=== PATIENT | male | born 1955 | race Caucasian/White ===

== ENCOUNTER 2016-09-26 12:04 | Emergency (ER) | payer MEDICARE ==
[~2016-09-26] VITALS: Ht 195.6 cm; Wt 78.0 kg
[~2016-09-26 12:04] MED LIST: HYDR-3533 PO
[2016-09-26 12:06] VITALS: BP 158/101; PULSE 107; RESP 16; TEMP 98.2; O2SAT 95
--- NOTE | 2016-09-26 13:59 | PD ---
HPI Chief Complaint: Fall Time Seen by Provider: 13:57 Travel History International Travel<30 days: No Contact w/Intl Traveler<30days: No Traveled to known affect area: No History of Present Illness HPI 60-year-old male presents to the emergency department status post falling in his shower this morning. Patient has history of chronic pain and EtOH abuse. Currently the patient does not appear intoxicated. He states he fell and hit his rib cage on the faucet on the left lower rib cage. He denies loss of consciousness, syncope, or hitting his head. He denies any other acute worsening pain. He is allergic to Phenergan, sulfa, and Ultram. PFSH Past Medical History Depression: Yes Heart Rhythm Problems: Yes (FAST HT BEAT ) Cardiovascular Problems: Yes Diminished Hearing: Yes Hypertension: Yes Musculoskeletal: Yes Neurologic: Yes (CEREBRAL PALSY) Past Surgical History Cardiac Surgery: Yes () Eye Surgery: Yes Social History Alcohol Use: Yes Tobacco Use: Yes Substance Use: No Allergies-Medications (Allergen,Severity, Reaction): Coded Allergies: Sulfa (Verified Allergy, Intermediate, HIVES, 09/26/16) Ultram (Verified Allergy, Mild, ITCH, 09/26/16) Phenergan (Verified Adverse Reaction, Severe, SEIZURES, 09/26/16) Reported Meds & Prescriptions Reported Meds & Active Scripts Active Lortab 5 mg/325 mg (Hydrocodone/Acetaminophen 5 mg/325 mg) 1 Tab 1 Tab PO Q6H PRN Review of Systems Except as stated in HPI: all other systems reviewed are Neg General / Constitutional: No: Fever Eyes: No: Visual changes HENT: No: Headaches Cardiovascular: No: Chest Pain or Discomfort Respiratory: No: Shortness of Breath Gastrointestinal: No: Abdominal Pain Genitourinary: No: Dysuria Musculoskeletal: Positive: Arthralgias (left lower anterior lateral rib cage), No: Pain Skin: No Rash Neurologic: No: Weakness Psychiatric: No: Depression Endocrine: No: Polydipsia Hematologic/Lymphatic: No: Easy Bruising Physical Exam Narrative GENERAL: Patient appears in no acute distress. He is talkative and animated, and moving all extremities normally. SKIN: Warm and dry. Normal color. Normal turgor. No open wounds, abrasions, or obvious ecchymosis noted on the thoracic wall. HEAD: Atraumatic. Normocephalic. Nontender. EYES: Pupils equal and round. No scleral icterus. No injection or drainage. ENT: No nasal bleeding or discharge. Mucous membranes pink and moist. Pharynx is clear. Airway patent. NECK: Trachea midline. No bony tenderness or step-off. Range of motion is full and supple. CARDIOVASCULAR: Regular rate and rhythm. No murmurs gallops or rubs appreciated. RESPIRATORY: No accessory muscle use. Clear to auscultation. Breath sounds equal bilaterally. Patient has generalized tenderness along the left anterior lateral lower thorax without obvious deformity, crepitus, or signs of trauma. MUSCULOSKELETAL: Extremities without clubbing, cyanosis, or edema. No obvious deformities. NEUROLOGICAL: Awake and alert. No obvious cranial nerve deficits. Motor grossly within normal limits. Five out of 5 muscle strength in the arms and legs. Normal speech. PSYCHIATRIC: Appropriate mood and affect; insight and judgment normal. Data Data Last Documented VS Vital Signs Date Time Temp Pulse Resp B/P Pulse Ox O2 Delivery O2 Flow Rate FiO2 09/26/16 12:06 98.2 107 16 158/101 95 Orders Ribs, Uni (W/Exp Cxr-Min 3vw) (09/26/16 13:59) [facility] Medical Decision Making Medical Screen Exam Complete: Yes Emergency Medical Condition: Yes Differential Diagnosis Fall in bathtub. Thoracic contusion. Rib pain. Rib fracture. Narrative Course Patient appears medically stable at time of exam. Left Rib x-rays and chest x-ray ordered. Chest x-ray and left rib films are negative for acute process. Patient is felt stable for discharge. Patient is given a prescription for ibuprofen 600 mg 4 times a day #40. Patient is given a prescription for extra strength Tylenol 2 tabs every 6 hours when necessary pain #60. Patient should use heat or ice to this area as needed. Patient follow with his primary care physician or return to emergency Department with worsening symptoms as needed. Diagnosis Primary Impression: Contusion of left front wall of thorax Qualified Code: S20.212A - Contusion of left front wall of thorax, initial encounter Referrals: [facility] as needed Patient Instructions: Contusion in Adults (ED), General Instructions Additional Instructions: Chest x-ray and left rib films are negative for acute process. Patient is felt stable for discharge. Patient is given a prescription for ibuprofen 600 mg 4 times a day #40. Patient is given a prescription for extra strength Tylenol 2 tabs every 6 hours when necessary pain #60. Patient should use heat or ice to this area as needed. Patient follow with his primary care physician or return to emergency Department with worsening symptoms as needed. Med/Other Pt SpecificInfo: Prescription(s) given Scripts Ibuprofen 600 Mg [id number] Mg PO Q6H PRN (Pain/Inflammation) #40 TAB Prov:Meagan Ortiz MD 09/26/16 Acetaminophen (Acetaminophen Extra Strength)500 Mg Cap1,000 Mg PO Q6H PRN (PAIN SCALE 4 TO 10) #60 CAP Ref 1 Prov:Meagan Ortiz MD 09/26/16 Disposition: 01 DISCHARGE HOME Condition: Stable Av Plascencia Sep 26, 2016 13:59
[2016-09-26] MEDS ORDERED: EXTR500C PO (15:22)
[2016-09-26] MEDS ORDERED: IBUP-232 PO (15:22)
--- NOTE | 2016-09-26 15:30 | RADRPT ---
EXAM DATE/TIME: 09/26/2016 14:27 [facility] COMPARISON: RIBS LEFT(W PA CXR MIN 3VWS), January 12, 2012, 16:12. INDICATIONS : Left middle and lower rib pain. Fall. MEDICAL HISTORY : Cardiovascular disease. Hypertension Cerebral palsy. Scoliosis. SURGICAL HISTORY : None. ENCOUNTER: Initial ACUITY: 1 day PAIN SCORE: 7/10 LOCATION: Left middle ribs FINDINGS: Multiple views of the left ribs were performed. There is no evidence of displaced fracture. No dest ructive lesions or areas of periosteal thickening are seen. Expiratory view of the chest is negative for pneumothorax. The mediastinal structures are midline. CONCLUSION: No evidence of displaced rib fracture or acute cardiopulmonary process. Musa Fulton MD on September 26, 2016 at 15:27 Board Certified Radiologist. This report was verified electronically.
== END 2016-09-26 15:43 | disposition home or self-care (01) ==
LOC: NETRI 12:04
DX: S20.212A Contusion of left front wall of thorax, initial encounter (principal); F32.9 Major depressive disorder, single episode, unspecified; I10 Essential (primary) hypertension; G80.9 Cerebral palsy, unspecified; Z72.0 Tobacco use; W18.2XXA Fall in (into) shower or empty bathtub, initial encounter; Y93.9 Activity, unspecified; Y92.9 Unspecified place or not applicable; Y99.9 Unspecified external cause status
CPT/HCPCS: 71101; 99284

== ENCOUNTER 2016-10-08 16:14 | Emergency (ER) | payer MEDICARE ==
[~2016-10-08] VITALS: Ht 195.6 cm; Wt 76.0 kg
[~2016-10-08 16:14] MED LIST changes: +EXTR500C PO; +IBUP-232 PO
[2016-10-08 17:29] VITALS: BP 176/89; PULSE 94; RESP 16; TEMP 97.9; O2SAT 97
[2016-10-08] MEDS ORDERED: HYDR-3535 PO (17:29)
[2016-10-08] MEDS ORDERED: SODIUM CHLORIDE 0.9% FLUSH 10 ML FLUSH IV FLUSH PRN (17:45)
--- NOTE | 2016-10-08 18:14 | PD ---
HPI Chief Complaint: Back/ Neck Pain or Injury Time Seen by Provider: 17:33 Travel History International Travel<30 days: No Contact w/Intl Traveler<30days: No Traveled to known affect area: No History of Present Illness HPI 60yo M with PMH of cerebral palsy who is homeless presents to the ED with mid back pain s/p trip and fall today. Pt states he was in a parking lot and tripped on something and fell backwards hitting his back. Denies any head trauma or LOC, chest pain, sob, n/v, dizziness, focal weakness or numbness or urinary complaints. Pt is very tender on abdominal exam and states he has been having diarrhea. PFSH Past Medical History Depression: Yes Heart Rhythm Problems: Yes (FAST HT BEAT ) Cardiovascular Problems: Yes Diminished Hearing: Yes (speaks garbled) Hypertension: Yes Musculoskeletal: Yes Neurologic: Yes (CEREBRAL PALSY) Influenza Vaccination: No Past Surgical History Cardiac Surgery: Yes () Eye Surgery: Yes Social History Alcohol Use: No Tobacco Use: Yes Substance Use: No Allergies-Medications (Allergen,Severity, Reaction): Coded Allergies: Sulfa (Verified Allergy, Intermediate, HIVES, 10/08/16) Ultram (Verified Allergy, Mild, ITCH, 10/08/16) Phenergan (Verified Adverse Reaction, Severe, SEIZURES, 10/08/16) Reported Meds & Prescriptions Reported Meds & Active Scripts Active Ibuprofen 400 Mg Tab 400 Mg PO Q8H PRN Reported Lortab (Hydrocodone-Acetaminophen) 10-325 Mg Tab 1 Tab PO Q6H PRN Review of Systems Except as stated in HPI: all other systems reviewed are Neg Physical Exam Narrative GENERAL: 60yo M not in distress. SKIN: Warm and dry. HEAD: Atraumatic. Normocephalic. EYES: Pupils equal and round. EOMI. No scleral icterus. No injection or drainage. ENT: No nasal bleeding or discharge. Mucous membranes pink and moist. NECK: No midline ttp cervical spine. CARDIOVASCULAR: Regular rate and rhythm. No murmur appreciated. RESPIRATORY: No accessory muscle use. Clear to auscultation. Breath sounds equal bilaterally. GASTROINTESTINAL: Abdomen soft, diffusely tender on palpation. BACK: +Mid thoracic to upper lumbar ttp. T4- L1. No erythema or ecchymoses. MUSCULOSKELETAL: Left knee: Distal pulse intact. Good range of motion. + Effusion in left knee joint. Sensation intact. No erythema. NEUROLOGICAL: Awake and alert. Muscle strength equal bilaterally in all extremities. Sensation equal in all extremities. PSYCHIATRIC: Appropriate mood and affect; insight and judgment normal. Data Data Last Documented VS Vital Signs Date Time Temp Pulse Resp B/P Pulse Ox O2 Delivery O2 Flow Rate FiO2 10/08/16 19:44 16 10/08/16 19:39 88 168/70 99 Room Air 10/08/16 17:29 97.9 Orders Complete Blood Count With Diff (10/08/16 17:43) Comprehensive Metabolic Panel (10/08/16 17:43) Lipase (10/08/16 17:43) Prothrombin Time / Inr (Pt) (10/08/16 17:43) Act Partial Throm Time (Ptt) (10/08/16 17:43) Ct Abd/Pel W Iv Contrast(Rout) (10/08/16 17:43) Iv Access Insert/Monitor (10/08/16 17:43) Ecg Monitoring (10/08/16 17:43) Oximetry (10/08/16 17:43) Sodium Chloride 0.9% Flush (Ns Flush) (10/08/16 17:45) Electrocardiogram (10/08/16 17:43) Chest, Single Ap (10/08/16 ) Urinalysis - C+S If Indicated (10/08/16 17:43) Alcohol (Ethanol) (10/08/16 18:10) Morphine Inj (Morphine Inj) (10/08/16 18:15) Iohexol 350 Inj (Omnipaque 350 Inj) (10/08/16 19:21) Knee, Ltd (1 Or 2vws) (10/08/16 ) Labs Laboratory Tests Test 10/08/16 10/08/16 18:07 18:10 White Blood Count 5.0 TH/MM3 Red Blood Count 4.05 MIL/MM3 Hemoglobin 12.8 GM/DL Hematocrit 38.3 % Mean Corpuscular Volume 94.5 FL Mean Corpuscular Hemoglobin 31.5 PG Mean Corpuscular Hemoglobin 33.3 % Concent Red Cell Distribution Width 14.4 % Platelet Count 175 TH/MM3 Mean Platelet Volume 7.7 FL Neutrophils (%) (Auto) 61.7 % Lymphocytes (%) (Auto) 17.3 % Monocytes (%) (Auto) 14.2 % Eosinophils (%) (Auto) 5.4 % Basophils (%) (Auto) 1.4 % Neutrophils # (Auto) 3.1 TH/MM3 Lymphocytes # (Auto) 0.9 TH/MM3 Monocytes # (Auto) 0.7 TH/MM3 Eosinophils # (Auto) 0.3 TH/MM3 Basophils # (Auto) 0.1 TH/MM3 CBC Comment DIFF FINAL Differential Comment Prothrombin Time 11.3 SEC Prothromb Time International 1.0 RATIO Ratio Activated Partial 32.6 SEC Thromboplast Time Sodium Level 140 MEQ/L Potassium Level 3.8 MEQ/L Chloride Level 107 MEQ/L Carbon Dioxide Level 25.7 MEQ/L Anion Gap 7 MEQ/L Blood Urea Nitrogen 14 MG/DL Creatinine 0.62 MG/DL Estimat Glomerular Filtration 132 ML/MIN Rate Random Glucose 96 MG/DL Calcium Level 8.5 MG/DL Total Bilirubin 0.7 MG/DL Aspartate Amino Transf 62 U/L (AST/SGOT) Alanine Aminotransferase 36 U/L (ALT/SGPT) Alkaline Phosphatase 65 U/L Total Protein 6.6 GM/DL Albumin 3.3 GM/DL Lipase 104 U/L Urine Color YELLOW Urine Turbidity CLEAR Urine pH 6.0 Urine Specific [place] 1.028 Urine Protein TRACE mg/dL Urine Glucose (UA) NEG mg/dL Urine Ketones NEG mg/dL Urine Occult Blood SMALL Urine Nitrite NEG Urine Bilirubin NEG Urine Urobilinogen 2.0 MG/DL Urine Leukocyte Esterase NEG Urine RBC 20 /hpf Urine WBC LESS THAN 1 /hpf Urine Mucus FEW /lpf Microscopic Urinalysis Comment CULT NOT INDICATED MDM Medical Decision Making Medical Screen Exam Complete: Yes Emergency Medical Condition: Yes Interpretation(s) EKG: NSR 89bpm. LAD. LVH. Incomplete RBBB. TWI V2, V6. Laboratory Tests Test 10/08/16 10/08/16 18:07 18:10 White Blood Count 5.0 TH/MM3 (4.0-11.0) Red Blood Count 4.05 MIL/MM3 (4.50-5.90) Hemoglobin 12.8 GM/DL (13.0-17.0) Hematocrit 38.3 % (39.0-51.0) Mean Corpuscular Volume 94.5 FL (80.0-100.0) Mean Corpuscular Hemoglobin 31.5 PG (27.0-34.0) Mean Corpuscular Hemoglobin 33.3 % Concent (32.0-36.0) Red Cell Distribution Width 14.4 % (11.6-17.2) Platelet Count 175 TH/MM3 (150-450) Mean Platelet Volume 7.7 FL (7.0-11.0) Neutrophils (%) (Auto) 61.7 % (16.0-70.0) Lymphocytes (%) (Auto) 17.3 % (9.0-44.0) Monocytes (%) (Auto) 14.2 % (0.0-8.0) Eosinophils (%) (Auto) 5.4 % (0.0-4.0) Basophils (%) (Auto) 1.4 % (0.0-2.0) Neutrophils # (Auto) 3.1 TH/MM3 (1.8-7.7) Lymphocytes # (Auto) 0.9 TH/MM3 (1.0-4.8) Monocytes # (Auto) 0.7 TH/MM3 (0-0.9) Eosinophils # (Auto) 0.3 TH/MM3 (0-0.4) Basophils # (Auto) 0.1 TH/MM3 (0-0.2) CBC Comment DIFF FINAL Differential Comment Prothrombin Time 11.3 SEC (9.8-11.6) Prothromb Time International 1.0 RATIO Ratio Activated Partial 32.6 SEC Thromboplast Time (24.3-30.1) Sodium Level 140 MEQ/L (136-145) Potassium Level 3.8 MEQ/L (3.5-5.1) Chloride Level 107 MEQ/L (98-107) Carbon Dioxide Level 25.7 MEQ/L (21.0-32.0) Anion Gap 7 MEQ/L (5-15) Blood Urea Nitrogen 14 MG/DL (7-18) Creatinine 0.62 MG/DL (0.60-1.30) Estimat Glomerular Filtration 132 ML/MIN Rate (>89) Random Glucose 96 MG/DL (74-106) Calcium Level 8.5 MG/DL (8.5-10.1) Total Bilirubin 0.7 MG/DL (0.2-1.0) Aspartate Amino Transf 62 U/L (15-37) (AST/SGOT) Alanine Aminotransferase 36 U/L (12-78) (ALT/SGPT) Alkaline Phosphatase 65 U/L (45-117) Total Protein 6.6 GM/DL (6.4-8.2) Albumin 3.3 GM/DL (3.4-5.0) Lipase 104 U/L (73-393) Urine Color YELLOW (YELLW/STRAW) Urine Turbidity CLEAR (CLEAR) Urine pH 6.0 (5.0-8.5) Urine Specific [place] 1.028 (1.002-1.035) Urine Protein TRACE mg/dL (NEG-TRACE) Urine Glucose (UA) NEG mg/dL (NEG) Urine Ketones NEG mg/dL (NEG) Urine Occult Blood SMALL (NEG) Urine Nitrite NEG (NEG) Urine Bilirubin NEG (NEG) Urine Urobilinogen 2.0 MG/DL (LESS THAN 2.0) Urine Leukocyte Esterase NEG (NEG) Urine RBC 20 /hpf (0-3) Urine WBC LESS THAN 1 /hpf (0-5) Urine Mucus FEW /lpf (OCC) Microscopic Urinalysis Comment CULT NOT INDICATED Last Impressions Chest X-Ray 10/08/16 0000 Signed Impressions: Service Date/Time: Saturday, October 08, 2016 18:12 - CONCLUSION: No acute cardiopulmonary disease. Laura Mayen MD Differential Diagnosis Mechanical fall vs. dehydration vs. infectious colitis Narrative Course 60yo M with back pain s/p trip and fall today. Pt has difficulty hearing but is AAOx3. Pt denies any head trauma or LOC. Pt is moving all extremities with full muscle strength. Although pt did not complain about abdominal pain, he was tender to palpation on exam. Labs reviewed, no leukocytosis. H/H at baseline. AST elevated at 62. Lipase normal. UA showed small blood. No leukocyte. Culture not indicated. CXR negative. CT abd/pelvis showed small pericardial effusion, simple cysts in kidneys and chronic changes of the lumbar spine. Pt was given morphine 4mg IV for pain. Abdominal pain improved after medication. Pt has full range of motion in left knee but does have swelling on exam. No erythema. Pt is refusing xray left knee so will sign out against medical advice. AMA: The risks of leaving against medical advice without further evaluation treatment were discussed with the patient. These risks include cardiac dysfunction, cardiac dysrhythmia, possible heart attack, possible stroke or . The patient indicated understanding of these risks and appeared to have the capacity to make this decision. Diagnosis Primary Impression: Fall Qualified Code: W19.XXXA - Fall, initial encounter Patient Instructions: General Instructions Departure Forms: Tests/Procedures Additional Instructions: Please follow up with your PMD in 1-2 days. Return to the ED if symptoms worsen. Med/Other Pt SpecificInfo: Prescription(s) given Scripts Ibuprofen 400 Mg [id number] Mg PO Q8H PRN (PAIN SCALE 1 TO 4) #20 TAB Ref 0 Prov:Ivonne Casanova DO 10/08/16 Disposition: 07 AGAINST MEDICAL ADVICE Condition: Stable Ivonne Casanova DO Oct 08, 2016 18:13
[2016-10-08] MEDS ORDERED: MORPHINE SULFATE 4 MG/ML INJ IV PUSH ONE (18:15)
[2016-10-08 18:37] LABS: AUTOMATED NEUTROPHIL # 3.1 TH/MM3 (1.8-7.7); BASOPHIL # 0.1 TH/MM3 (0-0.2); BASOPHIL % 1.4 % (0.0-2.0); EOSINOPHIL # 0.3 TH/MM3 (0-0.4); EOSINOPHIL % 5.4 % (0.0-4.0); HEMATOCRIT 38.3 % (39.0-51.0); HEMO FLAGS DIFF FINAL; LYMPH % 17.3 % (9.0-44.0); LYMPHOCYTE # 0.9 TH/MM3 (1.0-4.8); MEAN CELL VOLUME 94.5 FL (80.0-100.0); MEAN CORPUSCULAR HEMOGLOBIN 31.5 PG (27.0-34.0); MEAN CORPUSCULAR HGB CONC 33.3 % (32.0-36.0); MONO % 14.2 % (0.0-8.0); NEUT % 61.7 % (16.0-70.0); PLATELET COUNT 175 TH/MM3 (150-450); RED BLOOD COUNT 4.05 MIL/MM3 (4.50-5.90); RED CELL DISTRIBUTION WIDTH 14.4 % (11.6-17.2)
[2016-10-08 18:44] LABS: BLOOD, URINE SMALL (NEG); COMMENT (UR) CULT NOT INDICATED; CULTURE IF INDICATED CULT NOT INDICATED; GLUCOSE,URINE NEG (NEG); KETONE, URINE NEG (NEG); MUCUS URINE FEW /lpf (OCC); NITRITE,URINE NEG (NEG); URINE COLOR YELLOW (YELLW/STRAW)
--- NOTE | 2016-10-08 18:45 | RADRPT ---
EXAM DATE/TIME: 10/08/2016 18:12 [facility] COMPARISON: CHEST SINGLE AP, October 27, 2015, 21:14. INDICATIONS : Chest pain after fall. MEDICAL HISTORY : None. SURGICAL HISTORY : None. ENCOUNTER: Initial ACUITY: 1 day PAIN SCORE: 5/10 LOCATION: Bilateral chest FINDINGS: The lungs are clear without infiltrate, nodule, or mass. There is no appreciable pleural effusion fo r technique. Heart and mediastinum are unremarkable. CONCLUSION: No acute cardiopulmonary disease. Laura Mayen MD on October 08, 2016 at 18:43 Board Certified Radiologist. This report was verified electronically.
[2016-10-08 18:55] LABS: APTT (PATIENT) 32.6 SEC (24.3-30.1); PROTHROMBIN TIME - PATIENT 11.3 SEC (9.8-11.6)
[2016-10-08 18:59] LABS: ANION GAP 7 MEQ/L (5-15); AST (GOT) 62 U/L (15-37); BICARBONATE 25.7 MEQ/L (21.0-32.0); BLOOD UREA NITROGEN 14 MG/DL (7-18); CHLORIDE 107 MEQ/L (98-107); GLOMERULAR FILTRATION RATE 132 ML/MIN (>89); POTASSIUM 3.8 MEQ/L (3.5-5.1); SODIUM (NA) 140 MEQ/L (136-145)
[2016-10-08 19:02] LABS: ALKALINE PHOSPHATASE 65 U/L (45-117); ALT (GPT) 36 U/L (12-78); TOTAL BILIRUBIN ADULT 0.7 MG/DL (0.2-1.0)
[2016-10-08] MEDS ORDERED: IOHEXOL 350 MG/ML 10 ML VIAL (for RAD DIAG) IV ONE (19:21)
[2016-10-08 19:39] VITALS: BP 168/70; PULSE 88; RESP 18; O2SAT 99
[2016-10-08 19:44] VITALS: RESP 16
--- NOTE | 2016-10-08 19:47 | RADRPT ---
EXAM DATE/TIME: 10/08/2016 19:20 [facility] COMPARISON: CT LUMBAR SPINE W/O CONTRAST, December 08, 2015, 12:09. INDICATIONS : Fall with lower back and flank pain. IV CONTRAST: 100 cc Omnipaque 350 (iohexol) IV ORAL CONTRAST: No oral contrast ingested. RADIATION DOSE: 6.37 CTDIvol (mGy) MEDICAL HISTORY : Hypertension. SURGICAL HISTORY : None. ENCOUNTER: Initial ACUITY: 1 day PAIN SCALE: 6/10 LOCATION: Bilateral flank TECHNIQUE: Volumetric scanning of the abdomen and pelvis was performed. Using automated exposure control and adjustment of the mA and/or kV according to patient size, radiation dose was kept as low as reasonably achievable to obtain optimal diagnostic quality images. FINDINGS: CT Abdomen: The liver, spleen, pancreas, adrenals are unremarkable. There is no evidence for any appr eciable pathological adenopathy, free fluid, or bowel obstruction. There are simple cysts in both ki dneys the largest on the left measures 6.6 cm in size. Small pericardial effusion is seen. CT pelvis: There is no evidence for mass, abscess formation, or any significant adenopathy within the pelvis. There is lumbar scoliosis convexity towards the left with old bilateral L5 spondylolysis not changed since 2016 CT lumbar spine in addition to multilevel spinal stenosis and degenerative change s. CONCLUSION: Small pericardial effusion, simple cysts in the kidneys and chronic changes of the gordo mbar spine. Laura Mayen MD on October 08, 2016 at 19:40 Board Certified Radiologist. This report was verified electronically.
[2016-10-08] MEDS ORDERED: IBUP400T20 PO (20:21)
--- NOTE | 2016-10-08 21:49 | RADRPT ---
EXAM DATE/TIME: 10/08/2016 20:28 [facility] COMPARISON: No previous studies available for comparison. INDICATIONS : Left knee pain after fall. MEDICAL HISTORY : None. SURGICAL HISTORY : None. ENCOUNTER: Initial ACUITY: 1 day PAIN SCORE: 10/10 LOCATION: Left Knee. FINDINGS: No definite fractures, dislocations, lytic, or sclerotic lesions are seen. Extensive and far advanced osteoarthritis is seen in tricompartment. CONCLUSION: Osteoarthritis. K. Robbie Mayen MD on October 08, 2016 at 21:48 Board Certified Radiologist. This report was verified electronically.
--- NOTE | 2016-10-09 10:15 | EKG ---
Date Performed: 10/08/2016 Time Performed: 18:22:24 PTAGE: 60 years EKG: Sinus rhythm LEFT ATRIAL ENLARGEMENT INCOMPLETE RIGHT BUNDLE BRANCH BLOCK LEFT VENTRICULAR HYPERTROPHY AND ST-T C HANGE LATERAL MYOCARDIAL INFARCTION NONSPECIFIC ST-T WAVE ABNORMALITY PREVIOUS TRACING : 10/08/2016 18.21 DOCTOR: Jose Menendez Interpretating Date/Time 10/09/2016 10:13:58
== END 2016-10-08 21:36 | disposition home or self-care (01) ==
LOC: NEPA 16:14
DX: M54.9 Dorsalgia, unspecified (principal); I45.10 Unspecified right bundle-branch block; I51.7 Cardiomegaly; I10 Essential (primary) hypertension; G80.9 Cerebral palsy, unspecified; Z72.0 Tobacco use; I31.3 Pericardial effusion (noninflammatory); W18.09XA Striking against other object with subsequent fall, initial encounter; Y93.01 Activity, walking, marching and hiking; Y92.481 Parking lot as the place of occurrence of the external cause; Y99.8 Other external cause status
CPT/HCPCS: 71010; 73560; 74177; 80053; 80307; 81001; 83690; 85025; 85610; 85730; 93005; 96374; 99285; J2270; Q9967

== ENCOUNTER 2016-11-07 09:17 | Emergency (ER) | payer MEDICARE, OTHER ==
[~2016-11-07] VITALS: Ht 177.8 cm; Wt 68.0 kg
[~2016-11-07 09:17] MED LIST changes: -EXTR500C PO; -HYDR-3533 PO; +HYDR-3535 PO; -IBUP-232 PO; +IBUP400T20 PO
[2016-11-07 09:20] VITALS: BP 139/70; PULSE 98; RESP 15; TEMP 97.9; O2SAT 98
[2016-11-07 09:33] VITALS: BP 148/87; PULSE 98; RESP 18; O2SAT 97
[2016-11-07] MEDS ORDERED: ACETAMINOPHEN/HYDROcodone 325 MG/5 MG TAB PO ONE (10:30)
--- NOTE | 2016-11-07 10:31 | RADRPT ---
EXAM DATE/TIME: 11/07/2016 09:57 [facility] COMPARISON: No previous studies available for comparison. INDICATIONS : Posterior left rib pain. MEDICAL HISTORY : Hypertension. Smoker. SURGICAL HISTORY : None. ENCOUNTER: Initial ACUITY: 2 days PAIN SCORE: 10/10 LOCATION: Left posterior ribs. FINDINGS: There are displaced fractures of the right ninth rib and left 11th ribs. No definite pneumothorax is seen for technique. CONCLUSION: Bilateral rib fractures and no definite pneumothorax. Laura Mayen MD on November 07, 2016 at 10:27 Board Certified Radiologist. This report was verified electronically.
--- NOTE | 2016-11-07 10:32 | RADRPT ---
EXAM DATE/TIME: 11/07/2016 09:57 [facility] COMPARISON: No previous studies available for comparison. INDICATIONS : Left hip pain after fall. MEDICAL HISTORY : Hypertension. Smoker. SURGICAL HISTORY : None. ENCOUNTER: Initial ACUITY: 2 days PAIN SCORE: 10/10 LOCATION: Left hip joint. FINDINGS: No definite fractures, or dislocations are identified. No definite lytic or sclerotic lesion is seen . The joint space is well maintained. CONCLUSION: Unremarkable study. Laura Mayen MD on November 07, 2016 at 10:30 Board Certified Radiologist. This report was verified electronically.
--- NOTE | 2016-11-07 11:14 | RADRPT ---
EXAM DATE/TIME: 11/07/2016 10:15 [facility] COMPARISON: CT BRAIN W/O CONTRAST, October 27, 2015, 21:05. INDICATIONS : Fell and hit head. RADIATION DOSE: 56.37 CTDIvol (mGy) MEDICAL HISTORY : Hypertension. Cardiovascular disease SURGICAL HISTORY : None. ENCOUNTER: Initial ACUITY: 1 day PAIN SCALE: 3/10 LOCATION: cranial TECHNIQUE: Multiple contiguous axial images were obtained of the head. Using automated exposure control and adj ustment of the mA and/or kV according to patient size, radiation dose was kept as low as reasonably a chievable to obtain optimal diagnostic quality images. FINDINGS: CEREBRUM: The ventricles are normal for age. No evidence of midline shift, mass lesion, hemorrhage or acute in farction. No extra-axial fluid collections are seen. POSTERIOR FOSSA: The cerebellum and brainstem are intact. The 4th ventricle is midline. The cerebellopontine angle i s unremarkable. EXTRACRANIAL: The visualized portion of the orbits is intact. SKULL: The calvaria is intact. No evidence of skull fracture. CONCLUSION: No acute disease. No significant change has occurred. Musa Fulton MD on November 07, 2016 at 11:12 Board Certified Radiologist. This report was verified electronically.
[2016-11-07 11:17] VITALS: BP 114/59; PULSE 93; RESP 18; O2SAT 97
--- NOTE | 2016-11-07 11:19 | PD ---
HPI . Fall Chief Complaint: Fall Time Seen by Provider: 09:41 Travel History International Travel<30 days: No Contact w/Intl Traveler<30days: No Traveled to known affect area: No History of Present Illness HPI Patient presents complaining with a fall this morning. It was a mechanical fall. He states that he fell and struck the back of his head. Reports a positive loss of consciousness. He comes in complaining with posterior head pain, left rib pain and left hip pain. Pain is described as sharp and constant and 7/10. PFSH Past Medical History Depression: Yes Heart Rhythm Problems: Yes (FAST HT BEAT ) Cardiovascular Problems: Yes Diminished Hearing: Yes (speaks garbled) Hypertension: Yes Musculoskeletal: Yes Neurologic: Yes (CEREBRAL PALSY) Past Surgical History Cardiac Surgery: Yes () Eye Surgery: Yes Social History Alcohol Use: No Tobacco Use: Yes Substance Use: No Allergies-Medications (Allergen,Severity, Reaction): Coded Allergies: Sulfa (Verified Allergy, Intermediate, HIVES, 11/07/16) Ultram (Verified Allergy, Mild, ITCH, 11/07/16) Phenergan (Verified Adverse Reaction, Severe, SEIZURES, 11/07/16) Reported Meds & Prescriptions Reported Meds & Active Scripts Active Ibuprofen 400 Mg Tab 400 Mg PO Q8H PRN Reported Lortab (Hydrocodone-Acetaminophen) 10-325 Mg Tab 1 Tab PO Q6H PRN Review of Systems Except as stated in HPI: all other systems reviewed are Neg General / Constitutional: No: Fever, Chills HENT: Positive: Other (posterior head pain) Cardiovascular: Positive: Chest Pain or Discomfort Respiratory: No: Shortness of Breath Musculoskeletal: Positive: Arthralgias Neurologic: Positive: Slurred Speech, Other (positive LOC) Physical Exam Narrative GENERAL: Awake and alert and in no acute distress. SKIN: Warm and dry. HEAD: Normocephalic. He has a contusion to the occiput of the scalp. EYES: Pupils equal and round. Extraocular movements are intact. NECK: Trachea midline. Neck is nontender and he has full range of motion of the neck without pain. CARDIOVASCULAR: Regular rate and rhythm. Heart sounds are normal. RESPIRATORY: No accessory muscle use. Lungs are clear with full air movement throughout. He does have some left lateral chest wall tenderness with no crepitus or deformity. No bruises or abrasions noted. MUSCULOSKELETAL: No obvious deformities. No edema. Tender in the left hip. No shortening or malrotation. NEUROLOGICAL: Awake and alert. No obvious cranial nerve deficits. Motor grossly within normal limits. Slurred speech. PSYCHIATRIC: Appropriate mood and affect; insight and judgment normal. Data Data Last Documented VS Vital Signs Date Time Temp Pulse Resp B/P Pulse Ox O2 Delivery O2 Flow Rate FiO2 11/07/16 11:17 93 18 114/59 97 Room Air 11/07/16 09:[address] Brain W/O Iv Contrast(Rout) (11/07/16 09:41) Hip, Uni(Ap&Lat) W Ap Pelvis (11/07/16 09:41) Ribs, Uni (W/Exp Cxr-Min 3vw) (11/07/16 09:41) Acetamin-Hydrocod 325-5 Mg ([place] 5-325 (11/07/16 10:30) MDM Medical Decision Making Medical Screen Exam Complete: Yes Emergency Medical Condition: Yes Medical Record Reviewed: Yes (this patient has a history of cerebral palsy. He has associated dysarthria. Other medical problems include COPD, hypertension and BPH. He uses both tobacco and cocaine.) Differential Diagnosis My differential diagnosis of head trauma includes but is not limited to scalp contusion, concussion, intracerebral hemorrhage. Differential diagnosis of chest trauma includes but is not limited to superficial abrasions/contusions, rib fracture, pneumothorax, hemothorax, pulmonary contusion, cardiac contusion, ruptured thoracic aorta Differential diagnosis of extremity trauma includes but is not limited to fracture, sprain or strain, dislocation, contusion Narrative Course Patient presents for evaluation of injury sustained a mechanical fall this morning. CT CONCLUSION: No acute disease. No significant change has occurred. Last Impressions Ribs X-Ray 11/07/16940 Signed Impressions: Service Date/Time: October 09:57 - CONCLUSION: Bilateral rib fractures and no definite pneumothorax. Laura Mayen MD Hip and Pelvis X-Ray 11/07/16940 Signed Impressions: Service Date/Time: October 09:57 - CONCLUSION: Unremarkable study. Laura Mayen MD Diagnosis Primary Impression: Head injury due to trauma Qualified Code: S09.90XA - Head injury due to trauma, initial encounter Additional Impression: Rib fractures Qualified Code: S22.43XA - Closed fracture of multiple ribs of both sides, initial encounter Patient Instructions: General Instructions, Head Injury (DC), Rib Fracture (DC) Med/Other Pt SpecificInfo: Prescription(s) given Scripts Hydrocodone-Acetaminophen ([place])5-325 mg Tab1 Tab PO Q4H PRN (PAIN) #12 TAB Ref 0 Prov:Meagan Ortiz MD 11/07/16 Disposition: 01 DISCHARGE HOME Condition: Stable Meagan Ortiz MD Nov 07, 2016 11:19
[2016-11-07] MEDS ORDERED: NORC5TAB PO (11:23)
== END 2016-11-07 11:47 | disposition home or self-care (01) ==
LOC: NEPD 09:17
DX: S09.90XA Unspecified injury of head, initial encounter (principal); S22.43XA Multiple fractures of ribs, bilateral, initial encounter for closed fracture; I10 Essential (primary) hypertension; M25.552 Pain in left hip; G80.9 Cerebral palsy, unspecified; H91.90 Unspecified hearing loss, unspecified ear; Z72.0 Tobacco use; W19.XXXA Unspecified fall, initial encounter; Y93.9 Activity, unspecified; Y92.9 Unspecified place or not applicable
CPT/HCPCS: 70450; 71101; 73502

== ENCOUNTER 2016-11-09 20:09 | Emergency (ER) | payer MEDICARE ==
[~2016-11-09] VITALS: Ht 172.7 cm; Wt 77.0 kg
[~2016-11-09 20:09] MED LIST changes: +NORC5TAB PO
[2016-11-09 20:12] VITALS: BP 136/86; PULSE 109; RESP 20; TEMP 98.4; O2SAT 96
--- NOTE | 2016-11-09 20:37 | PD ---
HPI Chief Complaint: Respiratory Symptoms Time Seen by Provider: 20:31 Travel History International Travel<30 days: No Contact w/Intl Traveler<30days: No Traveled to known affect area: No History of Present Illness HPI 60-year-old male with history of a history of cerebral palsy. He has associated dysarthria. Other medical problems include COPD, hypertension and BPH. He uses both tobacco and cocaine.. Patient comes in complaining of ongoing left hip and buttock pain, and chest pain/shortness of breath since falling 3 days ago. Patient was seen here by Dr. Ortiz, and evaluated with CT Scan, and X-rays showing bilateral rib fractures and no acute hip or pelvic fracture at that time. Patient denies fever, but feels his pain in the left hip is worse as he fell again since that one visit. He is also complaining of shortness of breath, and states he is out of his Ventolin inhaler which she usually has. He denies fever, chills. He has no headache or abdominal pain. He does state a productive cough today, without specific discoloration of the sputum. He is allergic to Phenergan, sulfa, and Ultram. PFSH Past Medical History Depression: Yes Heart Rhythm Problems: Yes (FAST HT BEAT ) Cardiovascular Problems: Yes Diminished Hearing: Yes (speaks garbled) Hypertension: Yes Musculoskeletal: Yes Neurologic: Yes (CEREBRAL PALSY) Past Surgical History Cardiac Surgery: Yes () Eye Surgery: Yes Social History Alcohol Use: No Tobacco Use: Yes Substance Use: No Allergies-Medications (Allergen,Severity, Reaction): Coded Allergies: Sulfa (Verified Allergy, Intermediate, HIVES, 11/09/16) Ultram (Verified Allergy, Mild, ITCH, 11/09/16) Phenergan (Verified Adverse Reaction, Severe, SEIZURES, 11/09/16) Reported Meds & Prescriptions Reported Meds & Active Scripts Active Acetaminophen Extra Strength (Acetaminophen) 500 Mg Cap 1,000 Mg PO Q6H PRN Ventolin Hfa 18 GM Inh (Albuterol Sulfate) 90 Mcg/Act Aer 2 Puff INH Q4-6H PRN Ibuprofen 600 Mg Tab 600 Mg PO Q6H PRN [place] (Hydrocodone-Acetaminophen) 5-325 mg Tab 1 Tab PO Q4H PRN Ibuprofen 400 Mg Tab 400 Mg PO Q8H PRN Reported Lortab (Hydrocodone-Acetaminophen) 10-325 Mg Tab 1 Tab PO Q6H PRN Review of Systems ROS Limitations: Speech Impaired Except as stated in HPI: all other systems reviewed are Neg General / Constitutional: No: Fever HENT: No: Headaches Respiratory: Positive: Cough, Pleuritic Pain Musculoskeletal: Positive: Limited ROM (in the left hip.), Pain, No: Myalgias , Arthralgias Physical Exam Narrative GENERAL: Patient is noted to be in no acute distress. He is lying comfortably on the exam table. He does use a walker normally for ambulation. SKIN: Warm and dry. Normal color. Normal turgor. Without signs of acute trauma. HEAD: Atraumatic. Normocephalic. Nontender. EYES: Pupils equal and round. No scleral icterus. No injection or drainage. ENT: No nasal bleeding or discharge. Mucous membranes pink and moist. Pharynx is clear. Airway is patent. Patient is edentulous. NECK: Trachea midline. No JVD. No bony tenderness or step-off. Range of motion is full. CARDIOVASCULAR: Regular rate and rhythm. No murmurs gallops or rubs. RESPIRATORY: No accessory muscle use. Possible rhonchi in the left lower lung field to auscultation. No wheezes or crackles appreciated. Breath sounds equal bilaterally. GASTROINTESTINAL: Abdomen soft, non-tender, nondistended. Hepatic and splenic margins not palpable. MUSCULOSKELETAL: Extremities without clubbing, cyanosis, or edema. No obvious deformities. Patient has pain along the left posterior buttock and hip with decreased range of motion in the left hip with manipulation. No obvious deformity or shortening of the left lower extremity is noted. NEUROLOGICAL: Awake and alert. No obvious cranial nerve deficits. Motor grossly within normal limits. Five out of 5 muscle strength in the arms and legs. Normal speech. PSYCHIATRIC: Appropriate mood and affect; insight and judgment normal. Data Data Last Documented VS Vital Signs Date Time Temp Pulse Resp B/P Pulse Ox O2 Delivery O2 Flow Rate FiO2 11/09/16 20:12 98.4 109 20 136/86 96 Room Air Orders Hip, Uni(Ap&Lat) W Ap Pelvis (11/09/16 20:28) Chest, Single Ap (11/09/16 20:28) Chest, Expiration Only (11/09/16 ) MDM Medical Decision Making Medical Screen Exam Complete: Yes Emergency Medical Condition: Yes Medical Record Reviewed: Yes Differential Diagnosis Recurrent falls. History of rib fractures. Possible hip contusion/sprain. Possible hip fracture. Pneumonia. Pneumothorax. Pleural effusion. Narrative Course Patient is medically stable at time of exam. Vital signs are stable. X-rays of the left hip and pelvis are ordered. Chest x-ray is ordered. X-rays showed no acute process in the hip, or pelvis. Chest x-ray shows Last 24 hours Impressions Hip and Pelvis X-Ray 11/09/162027 Signed Impressions: Service Date/Time: Wednesday, November 09, 2016 20:46 - CONCLUSION: No evidence of recent bone injury. Zhang Kapoor MD Chest X-Ray 11/09/162027 Signed Impressions: Service Date/Time: Wednesday, November 09, 2016 20:45 - CONCLUSION: A focal opacity with vertical linear interface margin in the lateral left midlung is of uncertain significance. This could represent an early infiltrate. Recommend performing an expiratory erect view of the chest to exclude a pneumothorax. Zhang Kapoor MD Expiratory directly over the chest is ordered to rule out pneumothorax per radiologist request. Repeat chest x-ray shows no pneumothorax. Patient was discharged home with a prescription for Ventolin inhaler 2 puffs every 4-6 hours when necessary wheeze or shortness of breath. This has 1 refill. Patient is to take ibuprofen 600 mg, 1 tab 4 times a day when necessary #40. Patient is to take acetaminophen 500 mg 2 tabs every 6 hours when necessary #60. Patient is to follow with his primary care physician as needed. Diagnosis Primary Impression: Recurrent falls while walking Additional Impressions: Hip pain, left COPD (chronic obstructive pulmonary disease) Qualified Code: J41.0 - Simple chronic bronchitis Referrals: Primary Care Physician Patient Instructions: COPD (Chronic Obstructive Pulmonary Disease) (ED), General Instructions, Hip Pain (ED), Wheezing (ED) Scripts Acetaminophen (Acetaminophen Extra Strength)500 Mg Cap1,000 Mg PO Q6H PRN (PAIN SCALE 4 TO 10) #60 CAP Ref 1 Prov:Alfredo Barnard MD 11/09/16 Albuterol 18 GM Inh (Ventolin Hfa 18 GM Inh)90 Mcg/Act Aer2 Puff INH Q4-6H PRN ( SHORTNESS OF BREATH) #1 INHALER Ref 1 Prov:Alfredo Barnard MD 11/09/16 Ibuprofen 600 Mg [id number] Mg PO Q6H PRN (Pain/Inflammation) #40 TAB Prov:Alfredo Barnard MD 11/09/16 Disposition: 01 DISCHARGE HOME Condition: Stable Av Plascencia Nov 09, 2016 20:37
[2016-11-09] MEDS ORDERED: VENTAER INH (21:01)
[2016-11-09] MEDS ORDERED: IBUP-232 PO (21:01)
[2016-11-09] MEDS ORDERED: EXTR500C PO (21:01)
--- NOTE | 2016-11-09 21:04 | RADRPT ---
EXAM DATE/TIME: 11/09/2016 20:45 [facility] COMPARISON: CHEST SINGLE AP, October 08, 2016, 18:12. INDICATIONS : Cough and shortness of breath. MEDICAL HISTORY : None. SURGICAL HISTORY : None. ENCOUNTER: Initial ACUITY: 3 days PAIN SCORE: 0/10 LOCATION: chest FINDINGS: 2 frontal images are obtained in the supine position. On both views, there is an ill-defined opacity with a vertical interface located in the lateral left midlung. This could represent an infiltrate, however, a pleural reflection could conceivably have the same appearance. Right lung is clear. The heart is upper limits normal size for supine frontal view. Both hemidiaphragms well delineated. Hea led fracture of the anterior left 4th rib. CONCLUSION: A focal opacity with vertical linear interface margin in the lateral left midlung is of uncertain sig nificance. This could represent an early infiltrate. Recommend performing an expiratory erect view of the chest to exclude a pneumothorax. Zhang Kapoor MD on November 09, 2016 at 21:00 Board Certified Radiologist. This report was verified electronically.
--- NOTE | 2016-11-09 21:05 | RADRPT ---
EXAM DATE/TIME: 11/09/2016 20:46 [facility] COMPARISON: HIP LEFT (AP&LAT 2/3VWS) W AP PELVIS, November 07, 2016, 9:57. INDICATIONS : Patient had several falls and complains of left hip pain. MEDICAL HISTORY : None. SURGICAL HISTORY : None. ENCOUNTER: Initial ACUITY: 4 - 6 days PAIN SCORE: 10/10 LOCATION: Left Hip FINDINGS: Examination of the left hip was performed with AP Pelvis. The primary and secondary trabecular patte rn of the femoral neck is intact. The hip joint is of normal width without significant sclerosis or bony hypertrophy. The acetabulum is grossly intact. There is advanced degenerative changes in the l ower lumbar spine, similar to prior. CONCLUSION: No evidence of recent bone injury. Zhang Kapoor MD on November 09, 2016 at 21:02 Board Certified Radiologist. This report was verified electronically.
--- NOTE | 2016-11-09 22:22 | RADRPT ---
EXAM DATE/TIME: 11/09/2016 21:48 [facility] COMPARISON: RIBS LEFT(W PA CXR MIN 3VWS), November 07, 2016, 9:57. RIBS LEFT(W PA CXR MIN 3VWS), September 26, 2016, 14 :27. CHEST SINGLE AP, November 09, 2016, 20:45. INDICATIONS : Cough, chest pain, and shortness of breath. Rule out pneumo. MEDICAL HISTORY : Hypertension. Cardiovascular disease SURGICAL HISTORY : None. ENCOUNTER: Subsequent ACUITY: 1 day PAIN SCORE: 0/10 LOCATION: Bilateral chest FINDINGS: An erect portable AP view of the chest was performed to further evaluate a finding of left midlung. The vertical interface seen on the prior chest x-ray is not reproduced on this study and there is no evidence of pneumothorax. The lungs are symmetrically aerated and clear. There is asymmetric densit y in the right apex and asymmetric density in the right supraclavicular tissues. Prior rib series an d demonstrated an acute fracture lower right chest and the opacity at the right apex could represent either pleural thickening or fluid. The heart is normal size. CONCLUSION: 1. No evidence of pneumothorax on either side. 2. Asymmetric apical pleural thickening or fluid at the right apex. Known acute right 9th rib fractu re. Zhang Kapoor MD on November 09, 2016 at 22:16 Board Certified Radiologist. This report was verified electronically.
== END 2016-11-09 23:01 | disposition home or self-care (01) ==
LOC: NEPK 20:09
DX: M25.552 Pain in left hip (principal); J41.0 Simple chronic bronchitis; M79.1 Myalgia; R07.9 Chest pain, unspecified; I10 Essential (primary) hypertension; G80.9 Cerebral palsy, unspecified; H91.90 Unspecified hearing loss, unspecified ear; W19.XXXA Unspecified fall, initial encounter; Y93.01 Activity, walking, marching and hiking; Z91.81 History of falling; Z72.0 Tobacco use; Z87.09 Personal history of other diseases of the respiratory system; Z86.59 Personal history of other mental and behavioral disorders; Z86.79 Personal history of other diseases of the circulatory system; Z87.39 Personal history of other diseases of the musculoskeletal system and connective tissue
CPT/HCPCS: 71010; 73502; 99284

== ENCOUNTER 2016-11-12 15:46 | Inpatient (IN) | payer MEDICARE ==
[~2016-11-12] VITALS: Ht 193 cm; Wt 75.0 kg
[~2016-11-12 15:46] MED LIST changes: +EXTR500C PO; +IBUP-232 PO; +VENTAER INH
[2016-11-12 16:03] VITALS: BP 121/73; PULSE 100; RESP 20; TEMP 97.4; O2SAT 95
--- NOTE | 2016-11-12 16:10 | PD ---
HPI Chief Complaint: Chest Pain Time Seen by Provider: 16:10 Travel History International Travel<30 days: No Contact w/Intl Traveler<30days: No Traveled to known affect area: No History of Present Illness HPI 60-year-old male with history of cerebral palsy, hypertension, depression, tobacco and cocaine use, presents to the emergency department for evaluation of chest pain that started this morning. Patient was recently seen for multiple falls. He does have diagnosis of rib pain however the patient states he was sitting there this morning when he began to get this left-sided chest pain. It radiated to both arms. He thought at first it may be related to his fractures. He ate breakfast and rested but the pain persisted and only worsened. He states he felt mildly nauseous with it and became diaphoretic. That has subsided. [facility] was contacted and the patient was given sublingual nitroglycerin and this mildly relieved his symptoms. His pain is currently a 6 out of 10, constant, sharp. Denies any shortness of breath. No recent illnesses, fever, or chills. Patient has no other symptoms to report at this time. PFSH Past Medical History Depression: Yes Heart Rhythm Problems: Yes (FAST HT BEAT ) Cardiovascular Problems: Yes Diminished Hearing: Yes (speaks garbled) Hypertension: Yes Musculoskeletal: Yes Neurologic: Yes (CEREBRAL PALSY) Past Surgical History Cardiac Surgery: Yes () Eye Surgery: Yes Social History Alcohol Use: No Tobacco Use: Yes Substance Use: No Allergies-Medications (Allergen,Severity, Reaction): Coded Allergies: Sulfa (Verified Allergy, Intermediate, HIVES, 11/09/16) Ultram (Verified Allergy, Mild, ITCH, 11/09/16) Phenergan (Verified Adverse Reaction, Severe, SEIZURES, 11/09/16) Reported Meds & Prescriptions Reported Meds & Active Scripts Active Ventolin Hfa 18 GM Inh (Albuterol Sulfate) 90 Mcg/Act Aer 2 Puff INH Q4-6H PRN Ibuprofen 600 Mg Tab 600 Mg PO Q6H PRN Reported Lortab (Hydrocodone-Acetaminophen) 10-325 Mg Tab 1 Tab PO Q6H PRN Review of Systems Except as stated in HPI: all other systems reviewed are Neg Physical Exam Narrative GENERAL: Thin male patient, lying in bed, in no acute distress. Patient is deaf but reads lips very well and is able to communicate completely this way and chooses to. SKIN: Focused skin assessment warm/dry. Scarring and for many of the anterior chest. HEAD: Atraumatic. Normocephalic. EYES: Pupils equal and round. No scleral icterus. No injection or drainage. ENT: No nasal bleeding or discharge. Mucous membranes pink and moist. NECK: Trachea midline. No JVD. CARDIOVASCULAR: Tachycardic rate and rhythm. No murmur appreciated. RESPIRATORY: No accessory muscle use. Diminished to auscultation. Breath sounds equal bilaterally. There is tenderness to palpation of the anterior lateral rib cage bilaterally. GASTROINTESTINAL: Abdomen soft, nondistended. Epigastric and left upper quadrant tenderness to palpation, mild guarding. No rebound tenderness.. Hepatic and splenic margins not palpable. MUSCULOSKELETAL: No obvious deformities. No clubbing. No cyanosis. No edema. NEUROLOGICAL: Awake and alert. No obvious cranial nerve deficits. Motor grossly within normal limits. Patient does not have his teeth in and sometimes speech is difficult to understand. Data Data Last Documented VS Vital Signs Date Time Temp Pulse Resp B/P Pulse Ox O2 Delivery O2 Flow Rate FiO2 11/12/16 20:35 89 20 113/86 98 11/12/16 17:00 Room Air 11/12/16 16:03 97.4 Orders Electrocardiogram (11/12/16 16:10) Ckmb (Isoenzyme) Profile (11/12/16 16:10) Complete Blood Count With Diff (11/12/16 16:10) Magnesium (Mg) (11/12/16 16:10) Prothrombin Time / Inr (Pt) (11/12/16 16:10) Act Partial Throm Time (Ptt) (11/12/16 16:10) Troponin I (11/12/16 16:10) Ecg Monitoring (11/12/16 16:10) Bilateral Bp Monitoring (11/12/16 16:10) Iv Access Insert/Monitor (11/12/16 16:10) Oximetry (11/12/16 16:10) Oxygen Administration (11/12/16 16:10) Sodium Chloride 0.9% Flush (Ns Flush) (11/12/16 16:15) Sodium Chlorid 0.9% 500 Ml Inj (Ns 500 M (11/12/16 16:15) Chest, Pa & Lat (11/12/16 16:10) Ketorolac Inj (Toradol Inj) (11/12/16 16:15) Spine, Thoracic-Ap/Lat/Sw(3vw) (11/12/16 ) Comprehensive Metabolic Panel (11/12/16 16:48) Ct Abd/Pel W Iv Contrast(Rout) (11/12/16 ) Ct Thorax/ Chest W Iv Contrast (11/12/16 ) Lactic Acid Sepsis Protocol (11/12/16 17:19) Blood Culture (11/12/16 17:19) Vancomycin Inj (Vancomycin Inj) (11/12/16 17:45) Cefepime Inj (Maxipime Inj) (11/12/16 17:42) Iohexol 350 Inj (Omnipaque 350 Inj) (11/12/16 19:41) Morphine Inj (Morphine Inj) (11/12/16 19:45) Lipase (11/12/16 18:15) Troponin I (11/12/16 20:10) Electrocardiogram (11/12/16 ) CKMB (11/12/16 18:15) CKMB% (11/12/16 18:15) Admit Order (Ed Use Only) (11/12/16 21:03) Labs Laboratory Tests Test 11/12/16 11/12/16 11/12/16 11/12/16 16:15 18:10 18:15 20:30 White Blood Count 24.2 TH/MM3 Red Blood Count 3.58 MIL/MM3 Hemoglobin 11.4 GM/DL Hematocrit 34.7 % Mean Corpuscular Volume 96.9 FL Mean Corpuscular Hemoglobin 31.8 PG Mean Corpuscular Hemoglobin 32.8 % Concent Red Cell Distribution Width 14.1 % Platelet Count 432 TH/MM3 Mean Platelet Volume 7.6 FL Neutrophils (%) (Auto) 81.6 % Lymphocytes (%) (Auto) 3.9 % Monocytes (%) (Auto) 13.3 % Eosinophils (%) (Auto) 0.5 % Basophils (%) (Auto) 0.7 % Neutrophils # (Auto) 19.7 TH/MM3 Lymphocytes # (Auto) 0.9 TH/MM3 Monocytes # (Auto) 3.2 TH/MM3 Eosinophils # (Auto) 0.1 TH/MM3 Basophils # (Auto) 0.2 TH/MM3 CBC Comment AUTO DIFF Differential Total Cells 100 Counted Neutrophils % (Manual) 77 % Band Neutrophils % 4 % Lymphocytes % 6 % Monocytes % 13 % Neutrophils # (Manual) 19.6 TH/MM3 Differential Comment FINAL DIFF MANUAL Platelet Estimate NORMAL Platelet Morphology Comment NORMAL Red Cell Morphology Comment NORMAL Prothrombin Time 13.1 SEC Prothromb Time International 1.2 RATIO Ratio Activated Partial 31.0 SEC Thromboplast Time Lactic Acid Level 1.8 mmol/L Sodium Level 140 MEQ/L Potassium Level 4.0 MEQ/L Chloride Level 106 MEQ/L Carbon Dioxide Level 24.3 MEQ/L Anion Gap 10 MEQ/L Blood Urea Nitrogen 21 MG/DL Creatinine 0.77 MG/DL Estimat Glomerular Filtration 103 ML/MIN Rate Random Glucose 101 MG/DL Calcium Level 7.9 MG/DL Magnesium Level 2.3 MG/DL Total Bilirubin 0.9 MG/DL Aspartate Amino Transf 41 U/L (AST/SGOT) Alanine Aminotransferase 28 U/L (ALT/SGPT) Alkaline Phosphatase 124 U/L Total Creatine Kinase 242 U/L Creatine Kinase MB 3.1 NG/ML Troponin I LESS THAN 0.02 LESS THAN 0.02 NG/ML NG/ML Total Protein 6.2 GM/DL Albumin 2.2 GM/DL Lipase 111 U/L [facility] Medical Decision Making Medical Screen Exam Complete: Yes Emergency Medical Condition: Yes Medical Record Reviewed: Yes Differential Diagnosis Vessel pain versus rib fracture pain versus pneumothorax versus ACS versus pancreatitis versus gastritis Narrative Course 60-year-old male presents to emergency department for evaluation of chest pain. Patient appears without distress. He does have a significantly tender abdomen. He is mildly tachycardic. Abdominal and cardiac workup are initiated this time. EKG is reviewed with my attending physician who has also assessed the patient. EKG is similar to previous EKG. 1715 CBC results with leukocytosis of 24.2 with neutrophilia of 19.7 and a bandemia of 4. Chemistry is not yet complete. I discussed the patient my attending physician who recommends admitting for blood cultures and lactic acid. 1815 CMP results without acute concern. Mild elevation of AST at 41 and alkaline phosphatase 124. BUN is 21. Lipase and troponin is yet to be resulted. 191 troponin is still not resulted. I contacted the lab and they state they have not received it. Chest x-ray and thoracic spine x-ray are without acute abnormality. 2009 CT of the abdomen and pelvis shows a heterogeneity hematoma of the left buttock musculature. No acute fracture. There is scoliosis and degenerative changes of the spine. CT imaging of the chest show scoliosis, paraseptal emphysema, no acute abnormality. I Spoke with lab as the initial troponin is still not resulted. I am told that they are "having trouble with their machine. " Repeat EKG and troponin is ordered at this time 2100 troponin is less than 0.02. I discussed the patient with Dr. Neves. Patient will be admitted to [facility] service for observation and further evaluation. Diagnosis Primary Impression: Chest pain Qualified Code: R07.9 - Chest pain, unspecified type Admitting Information Admitting Physician Requests: Observation Condition: Stable Emilie Davis Nov 12, 2016 16:10
[2016-11-12] MEDS ORDERED: KETOROLAC TROMETHAMINE 30 MG/ML (IVP) VIAL IV PUSH ONE (16:15)
[2016-11-12] MEDS ORDERED: SODIUM CHLORIDE 0.9% FLUSH 10 ML FLUSH IVF PRN (16:15)
[2016-11-12] MEDS ORDERED: SODIUM CHLORID 0.9% 500 ML INJ 500 ML IV ONE (16:15)
[2016-11-12 16:30] LABS: AUTOMATED NEUTROPHIL # 19.7 TH/MM3 (1.8-7.7); BASOPHIL # 0.2 TH/MM3 (0-0.2); BASOPHIL % 0.7 % (0.0-2.0); EOSINOPHIL # 0.1 TH/MM3 (0-0.4); EOSINOPHIL % 0.5 % (0.0-4.0); HEMATOCRIT 34.7 % (39.0-51.0); LYMPH % 3.9 % (9.0-44.0); LYMPHOCYTE # 0.9 TH/MM3 (1.0-4.8); MEAN CELL VOLUME 96.9 FL (80.0-100.0); MEAN CORPUSCULAR HEMOGLOBIN 31.8 PG (27.0-34.0); MEAN CORPUSCULAR HGB CONC 32.8 % (32.0-36.0); MONO % 13.3 % (0.0-8.0); NEUT % 81.6 % (16.0-70.0); PLATELET COUNT 432 TH/MM3 (150-450); RED BLOOD COUNT 3.58 MIL/MM3 (4.50-5.90); RED CELL DISTRIBUTION WIDTH 14.1 % (11.6-17.2); WHITE BLOOD COUNT 24.2 TH/MM3 (4.0-11.0)
[2016-11-12 16:32] LABS: HEMO FLAGS AUTO DIFF
[2016-11-12 16:35] LABS: INTERNATIONAL NORMALIZED RATIO 1.2 RATIO; PROTHROMBIN TIME - PATIENT 13.1 SEC (9.8-11.6)
--- NOTE | 2016-11-12 16:42 | RADRPT ---
EXAM DATE/TIME: 11/12/2016 16:19 [facility] COMPARISON: CHEST EXPIRATION ONLY, November 09, 2016, 21:48. INDICATIONS : Short of breath. MEDICAL HISTORY : Chronic obstructive pulmonary disease. SURGICAL HISTORY : None. ENCOUNTER: Initial ACUITY: 1 day PAIN SCORE: 0/10 LOCATION: Bilateral chest FINDINGS: PA and lateral views of the chest demonstrate the lungs to be symmetrically aerated without evidence of mass, infiltrate or effusion. The cardiomediastinal contours are unremarkable. Osseous structure s are intact. CONCLUSION: No acute disease. Marcellus Cervantes MD on November 12, 2016 at 16:39 Board Certified Radiologist. This report was verified electronically.
[2016-11-12 17:00] VITALS: BP 124/72; PULSE 95; RESP 20; O2SAT 98
--- NOTE | 2016-11-12 17:02 | PD ---
Data Data Last Documented VS Vital Signs Date Time Temp Pulse Resp B/P Pulse Ox O2 Delivery O2 Flow Rate FiO2 11/12/16 16:03 97.4 100 20 121/73 95 Orders Electrocardiogram (11/12/16 16:10) Ckmb (Isoenzyme) Profile (11/12/16 16:10) Complete Blood Count With Diff (11/12/16 16:10) Magnesium (Mg) (11/12/16 16:10) Prothrombin Time / Inr (Pt) (11/12/16 16:10) Act Partial Throm Time (Ptt) (11/12/16 16:10) Troponin I (11/12/16 16:10) Ecg Monitoring (11/12/16 16:10) Bilateral Bp Monitoring (11/12/16 16:10) Iv Access Insert/Monitor (11/12/16 16:10) Oximetry (11/12/16 16:10) Oxygen Administration (11/12/16 16:10) Sodium Chloride 0.9% Flush (Ns Flush) (11/12/16 16:15) Sodium Chlorid 0.9% 500 Ml Inj (Ns 500 M (11/12/16 16:15) Chest, Pa & Lat (11/12/16 16:10) Ketorolac Inj (Toradol Inj) (11/12/16 16:15) Spine, Thoracic-Ap/Lat/Sw(3vw) (11/12/16 ) Lipase (11/12/16 16:48) Comprehensive Metabolic Panel (11/12/16 16:48) Ct Abd/Pel W Iv Contrast(Rout) (11/12/16 ) Labs Laboratory Tests Test 11/12/16 16:15 White Blood Count 24.2 TH/MM3 Red Blood Count 3.58 MIL/MM3 Hemoglobin 11.4 GM/DL Hematocrit 34.7 % Mean Corpuscular Volume 96.9 FL Mean Corpuscular Hemoglobin 31.8 PG Mean Corpuscular Hemoglobin 32.8 % Concent Red Cell Distribution Width 14.1 % Platelet Count 432 TH/MM3 Mean Platelet Volume 7.6 FL Neutrophils (%) (Auto) 81.6 % Lymphocytes (%) (Auto) 3.9 % Monocytes (%) (Auto) 13.3 % Eosinophils (%) (Auto) 0.5 % Basophils (%) (Auto) 0.7 % Neutrophils # (Auto) 19.7 TH/MM3 Lymphocytes # (Auto) 0.9 TH/MM3 Monocytes # (Auto) 3.2 TH/MM3 Eosinophils # (Auto) 0.1 TH/MM3 Basophils # (Auto) 0.2 TH/MM3 CBC Comment AUTO DIFF Prothrombin Time 13.1 SEC Prothromb Time International 1.2 RATIO Ratio Activated Partial 31.0 SEC Thromboplast Time MDM Supervised Visit with MED: Yes Narrative Course The history, exam, and medical decision-making in the associated midlevel provider note were completed with my assistance. I reviewed and agree with the findings presented. I attest that I had a lbap-ni-tumo encounter with the patient on the same day, and personally performed and documented my assessment and findings in the medical record. *My assessment and Findings: This is a 60-year-old male who presents to the emergency department with chest discomfort. He has a history of cerebral palsy and frequent falls and has known rib fractures. He says today he woke up with discomfort in the sternal and epigastric area. He is quite tender in the upper abdomen on exam. His EKG demonstrates some left ventricular hypertrophy and borderline ST elevation in the lateral leads which is unchanged from his EKG on October 08. His story is atypical for acute coronary syndrome. Labs and CT abdomen and pelvis will be obtained. If these are reassuring at think the patient can be observed in the chest pain center for serial cardiac enzymes. Vivian Munoz MD Nov 12, 2016 17:02
--- NOTE | 2016-11-12 17:08 | RADRPT ---
EXAM DATE/TIME: 11/12/2016 16:28 [facility] COMPARISON: No previous studies available for comparison. INDICATIONS : Fell. MEDICAL HISTORY : None. SURGICAL HISTORY : None. ENCOUNTER: Initial ACUITY: 2 days PAIN SCORE: Non-responsive. LOCATION: Bilateral thoracic spine FINDINGS: AP and lateral views of the thoracic spine were obtained and demonstrate a mild to moderate scoliosis . There is diffuse osteopenia with no acute fracture or malalignment in the thoracic spine. There are mild to moderate degenerative changes. The visualized portions of the ribs are intact. Degenerative disc changes noted in the cervical spine. CONCLUSION: Negative trauma study. Marcellus Cervantes MD on November 12, 2016 at 17:05 Board Certified Radiologist. This report was verified electronically.
[2016-11-12 17:26] LABS: BANDS 4 % (0-6); NEUTROPHIL # MANUAL DIFF 19.6 TH/MM3 (1.8-7.7); POLYS (SEG NEUTROPHILS) 77 % (16-70); WBC DIFF SAMPLE 100
[2016-11-12 17:32] LABS: PLATELET ESTIMATE SMEAR NORMAL (NORMAL); PLATELET MORPHOLOGY NORMAL (NORMAL)
[2016-11-12 17:33] LABS: SCAN/DIFF FINAL DIFF MANUAL
[2016-11-12] MEDS ORDERED: CEFEPIME INJ 2,000 MG in SODIUM CHLORIDE 0.9% INJ 100 ML IV STA (17:42)
[2016-11-12] MEDS ORDERED: VANCOMYCIN INJ 1,000 MG in SODIUM CHLOR 0.9% 250 ML INJ 250 ML IV ONE (17:45)
[2016-11-12 18:55] LABS: ANION GAP 10 MEQ/L (5-15); AST (GOT) 41 U/L (15-37); BICARBONATE 24.3 MEQ/L (21.0-32.0); BLOOD UREA NITROGEN 21 MG/DL (7-18); CHLORIDE 106 MEQ/L (98-107); GLOMERULAR FILTRATION RATE 103 ML/MIN (>89); SODIUM (NA) 140 MEQ/L (136-145)
[2016-11-12 18:58] LABS: ALKALINE PHOSPHATASE 124 U/L (45-117); ALT (GPT) 28 U/L (12-78); TOTAL BILIRUBIN ADULT 0.9 MG/DL (0.2-1.0)
[2016-11-12] MEDS ORDERED: IOHEXOL 350 MG/ML 10 ML VIAL (for RAD DIAG) IV ONE (19:41)
[2016-11-12] MEDS ORDERED: MORPHINE SULFATE 4 MG/ML INJ IV PUSH ONE (19:45)
--- NOTE | 2016-11-12 19:54 | RADRPT ---
EXAM DATE/TIME: 11/12/2016 19:16 [facility] COMPARISON: No previous studies available for comparison. INDICATIONS : Post fall 3 days ago , now having chest pain . IV CONTRAST: 93 cc Omnipaque 350 (iohexol) IV ; Cumulative dose for multiple exams. RADIATION DOSE: 9.05 CTDIvol (mGy) ; Combined studies - Thorax/Abdomen/Pelvis MEDICAL HISTORY : Cardiovascular disease. Cerebrovascular disease. Hypertension.Cerebral palsy SURGICAL HISTORY : None. not obrainable ENCOUNTER: Initial ACUITY: 3 days PAIN SCALE: 10/10 LOCATION: Bilateral chest TECHNIQUE: Volumetric scanning of the chest was performed. Using automated exposure control and adjustment of t he mA and/or kV according to patient size, radiation dose was kept as low as reasonably achievable to obtain optimal diagnostic quality images. FINDINGS: LUNGS: There is no consolidation or pneumothorax. No concerning pulmonary nodule is visualized. Paraseptal emphysema. PLEURA: There is no pleural thickening or pleural effusion. MEDIASTINUM: The heart and great vessels demonstrate no acute abnormality. There is no mediastinal or hilar lymph adenopathy. AXILLAE: Within normal limits. No lymphadenopathy. SKELETAL: There is scoliosis.. MISCELLANEOUS: The visualized upper abdominal organs demonstrate no acute abnormality. CONCLUSION: 1. No acute thoracic process. 2. Paraseptal emphysema. 3. Scoliosis. Jermaine Zee MD on November 12, 2016 at 19:46 Board Certified Radiologist. This report was verified electronically.
--- NOTE | 2016-11-12 20:00 | RADRPT ---
EXAM DATE/TIME: 11/12/2016 19:16 [facility] COMPARISON: CT ABDOMEN & PELVIS W CONTRAST, October 08, 2016, 19:20. INDICATIONS : Post fall out of wheel chair 3 days now has chest pain . IV CONTRAST: 93 cc Omnipaque 350 (iohexol) IV ; Cumulative dose for multiple exams. ORAL CONTRAST: No oral contrast ingested. RADIATION DOSE: 9.05 CTDIvol (mGy) ; Combined studies - Thorax/Abdomen/Pelvis MEDICAL HISTORY : Hypertension. Cardiovascular disease cerebral palsy SURGICAL HISTORY : un obtainable ENCOUNTER: Initial ACUITY: 1 day PAIN SCALE: 0/10 LOCATION: Umbilical TECHNIQUE: Volumetric scanning of the abdomen and pelvis was performed. Using automated exposure control and ad justment of the mA and/or kV according to patient size, radiation dose was kept as low as reasonably achievable to obtain optimal diagnostic quality images. FINDINGS: LOWER LUNGS: The visualized lower lungs are clear. LIVER: Homogeneous density without lesion. There is no dilation of the biliary tree. No calcified gallston es. SPLEEN: Normal size without lesion. PANCREAS: Within normal limits. KIDNEYS: Normal in size and shape. There is no mass, stone or hydronephrosis. Bilateral renal cysts. ADRENAL GLANDS: Within normal limits. VASCULAR: There is no aortic aneurysm. BOWEL/MESENTERY: The stomach, small bowel, and colon demonstrate no acute abnormality. There is no free intraperitone al air or fluid. ABDOMINAL WALL: Within normal limits. RETROPERITONEUM: There is no lymphadenopathy. BLADDER: No wall thickening or mass. REPRODUCTIVE: Within normal limits. INGUINAL: There is no lymphadenopathy or hernia. MUSCULOSKELETAL: There is thickening and heterogeneity of the left buttock musculature, likely hematoma. Scoliosis and degenerative changes. Old compression fracture at L1. CONCLUSION: 1. Heterogeneity/hematoma left buttock musculature. 2. No acute fracture. 3. Scoliosis and degenerative changes. Jermaine Zee MD on November 12, 2016 at 19:56 Board Certified Radiologist. This report was verified electronically.
[2016-11-12 20:35] VITALS: BP 113/86; PULSE 89; RESP 20; O2SAT 98
[2016-11-12 20:50] LABS: MAGNESIUM 2.3 MG/DL (1.5-2.5)
[2016-11-12 20:53] LABS: CREATINE KINASE 242 U/L (39-308)
[2016-11-12 21:05] LABS: CKMB 3.1 NG/ML (0.5-3.6)
[2016-11-12] MEDS: SODIUM CHLOR 0.9% 1000 ML INJ 1,000 ML IV SCH (21:13)
[2016-11-12] MEDS ORDERED: ACETAMINOPHEN 325 MG TAB PO PRN (21:15)
[2016-11-12] MEDS ORDERED: ONDANSETRON HCL 4 MG/2 ML VIAL IVP PRN (21:15)
[2016-11-12] MEDS ORDERED: SODIUM CHLORIDE 0.9% FLUSH 10 ML FLUSH IV FLUSH PRN (21:15)
[2016-11-12] MEDS ORDERED: NALOXONE HCL 0.4 MG/ML AMP IV PRN (21:15)
[2016-11-12 21:44] LABS: BLOOD, URINE NEG (NEG); COMMENT (UR) CULT NOT INDICATED; CULTURE IF INDICATED CULT NOT INDICATED; GLUCOSE,URINE NEG (NEG); KETONE, URINE NEG (NEG); MUCUS URINE FEW /lpf (OCC); NITRITE,URINE NEG (NEG); SQUAMOUS EPITHELIAL CELL URINE <1 /hpf (0-5); URINE COLOR YELLOW (YELLW/STRAW)
[2016-11-13] VITALS (8 sets, daily range): BP systolic 121–147; BP diastolic 60–85; PULSE 81–102; RESP 16–20; TEMP 97.6–99.2; O2SAT 93–98
--- NOTE | 2016-11-13 00:22 | HHI.HP ---
[facility] Service [facility] Primary Care Physician No Primary Care Physician Admission Diagnosis chest pain; leukocytosis Diagnoses: Chief Complaint: chest pain Travel History International Travel<30 Days: No Contact w/Intl Traveler <30 Da: No Traveled to Known Affected Are: No History of Present Illness This is a 60 year old male patient with a past medical history which includes Cerebral Palsy, congenital deafness, HTN, COPD and depression. Patient is congenitally deaf communicates by reading lips and has impaired speak whihchi limits communication. Information obtained from patient as well as computerized charting. Patient reports he was sent to ER by a doctor on [facility] because of chest pain. Patient reports he has had chest pain for the past two months. Patient had a fall this past Friday at which time he sustained bilateral rib fractures R 9th and L 11th rib. Patient report this morning his chest pain was much worse. Patient reported this [facility] and was directed to a doctor. Patient reports the chest pain this AM was associated with shortness of breath, diaphoresis and stiffness of his bilateral arm. Patient describes chest pain as a stabbing sensation. Chest pain is worse with taking a deep breath or coughing. Initial EKG reveals SR rate 97 bpm with LAE and LVH Patient reports he vomiting once yesterday black in color. Patient also had diarrhea 5-6 times in the past week. Stool is also black in color. Patient denies fevers or chills. 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," Cerebral Palsy, congenital deafness, HTN, COPD and depression Past Surgical History cardiac surgery at eye surgery reconstructive surgery LLE Reported Medications Ventolin Hfa 18 GM Inh (Albuterol Sulfate) 90 Mcg/Act Aer 2 Puff INH Q4-6H PRN Ibuprofen 600 Mg Tab 600 Mg PO Q6H PRN Lortab (Hydrocodone-Acetaminophen) 10-325 Mg Tab 1 Tab PO Q6H PRN Allergies: Coded Allergies: Sulfa (Verified Allergy, Intermediate, HIVES, 11/09/16) Ultram (Verified Allergy, Mild, ITCH, 11/09/16) Phenergan (Verified Adverse Reaction, Severe, SEIZURES, 11/09/16) Active Ordered Medications Current Medications Medications (Trade) Dose Ordered Sig/Zaira Route Start Time Stop Time Status Last Admin Sodium Chloride 2 ml 2 ml UNSCH PRN IVF 11/12/16 16:15 (NS 1000 ml Inj) 1,000 ml @ 84 mls/hr [id number] IV 11/12/16 21:13 (NS Flush) 2 ml UNSCH PRN IV FLUSH 11/12/16 21:15 (NS Flush) 2 ml BID IV FLUSH 11/13/16 09:00 (Tylenol) 650 mg Q4H PRN PO 11/12/16 21:15 (Zofran Inj) 4 mg Q6H PRN IVP 11/12/16 21:15 (Narcan Inj) 0.4 mg UNSCH PRN IV 11/12/16 21:15 Family History Mother had heart problems and cancer Father had heart problems Social History Quit smoking yesterday morning- started smoking at 7 years old hx alcoholism 10-15 years ago denies illicit drug use Physical Exam Vital Signs Vital Signs Date Time Temp Pulse Resp B/P Pulse Ox O2 Delivery O2 Flow Rate FiO2 11/12/16 20:35 89 20 113/86 98 11/12/16 20:16 20 11/12/16 17:00 Room Air 11/12/16 17:00 95 20 124/72 98 Room Air 11/12/16 17:00 20 97 Room Air 11/12/16 16:03 97.4 100 20 121/73 95 Physical Exam GENERAL: This is a well-nourished 60 year old male patient congenitally deaf with speak impediment, in no apparent distress. SKIN: left buttock area palpable contained hematoma HEAD: Atraumatic. Normocephalic. No temporal or scalp tenderness. EYES: Extraocular motions intact. No scleral icterus. No injection or drainage. CARDIOVASCULAR: Regular rate and rhythm with 2/6 murmur. RESPIRATORY: Clear to auscultation. Breath sounds equal bilaterally. No wheezes , rales, or rhonchi. GASTROINTESTINAL: Abdomen soft, generalized tenderness to palpation, nondistended. No guarding. MUSCULOSKELETAL: Extremities without clubbing, cyanosis, or edema. No joint tenderness, effusion, or edema noted. No calf tenderness. Negative Homans sign bilaterally. NEUROLOGICAL: Awake and alert. Motor and sensory grossly within normal limits. 4 out of 5 muscle strength in all muscle groups. Impaired speech. Laboratory Laboratory Tests Test 11/12/16 11/12/16 11/12/16 11/12/16 16:15 18:10 18:15 20:30 White Blood Count 24.2 Red Blood Count 3.58 Hemoglobin 11.4 Hematocrit 34.7 Mean Corpuscular Volume 96.9 Mean Corpuscular Hemoglobin 31.8 Mean Corpuscular Hemoglobin 32.8 Concent Red Cell Distribution Width 14.1 Platelet Count 432 Mean Platelet Volume 7.6 Neutrophils (%) (Auto) 81.6 Lymphocytes (%) (Auto) 3.9 Monocytes (%) (Auto) 13.3 Eosinophils (%) (Auto) 0.5 Basophils (%) (Auto) 0.7 Neutrophils # (Auto) 19.7 Lymphocytes # (Auto) 0.9 Monocytes # (Auto) 3.2 Eosinophils # (Auto) 0.1 Basophils # (Auto) 0.2 CBC Comment AUTO DIFF Differential Total Cells 100 Counted Neutrophils % (Manual) 77 Band Neutrophils % 4 Lymphocytes % 6 Monocytes % 13 Neutrophils # (Manual) 19.6 Differential Comment FINAL DIFF MANUAL Platelet Estimate NORMAL Platelet Morphology Comment NORMAL Red Cell Morphology Comment NORMAL Prothrombin Time 13.1 Prothromb Time International 1.2 Ratio Activated Partial 31.0 Thromboplast Time Lactic Acid Level 1.8 Sodium Level 140 Potassium Level 4.0 Chloride Level 106 Carbon Dioxide Level 24.3 Anion Gap 10 Blood Urea Nitrogen 21 Creatinine 0.77 Estimat Glomerular Filtration 103 Rate Random Glucose 101 Calcium Level 7.9 Magnesium Level 2.3 Total Bilirubin 0.9 Aspartate Amino Transf 41 (AST/SGOT) Alanine Aminotransferase 28 (ALT/SGPT) Alkaline Phosphatase 124 Total Creatine Kinase 242 Creatine Kinase MB 3.1 Troponin I LESS THAN 0.02 LESS THAN 0.02 Total Protein 6.2 Albumin 2.2 Lipase 111 Test 11/12/16 21:15 Urine Color YELLOW Urine Turbidity CLEAR Urine pH 6.0 Urine Specific [place] GREATER THAN 1.050 Urine Protein 30 Urine Glucose (UA) NEG Urine Ketones NEG Urine Occult Blood NEG Urine Nitrite NEG Urine Bilirubin NEG Urine Urobilinogen 8.0 Urine Leukocyte Esterase NEG Urine RBC 3 Urine WBC 2 Urine Squamous Epithelial <1 Cells Urine Mucus FEW Microscopic Urinalysis Comment CULT NOT INDICATED Date/Time Procedure Status Source Growth 11/12/16 18:10 Aerobic Blood Culture Received Blood Peripheral Pending 11/12/16 18:10 Anaerobic Blood Culture Received Blood Peripheral Pending Result Diagram: 11/12/16 1615 11/12/16 1815 Imaging Last Impressions Chest X-Ray 11/12/16 1610 Signed Impressions: Service Date/Time: Saturday, November 12, 2016 16:19 - CONCLUSION: No acute disease. Marcellus eCrvantes MD Thoracic Spine X-Ray 11/12/16 0000 Signed Impressions: Service Date/Time: Saturday, November 12, 2016 16:28 - CONCLUSION: Negative trauma study. Marcellus Cervantes MD Chest CT 11/12/16 0000 Signed Impressions: Service Date/Time: Saturday, November 12, 2016 19:16 - CONCLUSION: 1. No acute thoracic process. 2. Paraseptal emphysema. 3. Scoliosis. Jermaine Zee MD Abdomen/Pelvis CT 11/12/16 0000 Signed Impressions: Service Date/Time: Saturday, November 12, 2016 19:16 - CONCLUSION: 1. Heterogeneity/hematoma left buttock musculature. 2. No acute fracture. 3. Scoliosis and degenerative changes. Jermaine Zee MD Assessment and Plan Problem List: (1) Chest pain ICD Code: R07.9 Status: Acute (2) Diarrhea ICD Code: R19.7 Status: Acute Assessment and Plan This is a 60 year old male patient with a past medical history which includes Cerebral Palsy, congenital deafness, HTN, COPD and depression. Patient reports he was sent to ER by a doctor on pain management doctor on [facility] because of chest pain. Patient reports he has had chest pain for the past two months. Patient had a fall this past Friday at which time he fractured bilateral rib fractures R 9th and L 11th rib. Patient report this morning his chest pain was much worse. Patient reported this to the nurse at the [facility] and was directed to a doctor. Chest pain associated with shortness of breath, diaphoresis and stiffness of his bilateral arm. Patient describes chest pain as stabbing sensation. Chest pain is worse with taking a deep breath or coughing. Patient reports he vomiting once yesterday black in color. Patient also had diarrhea 5-6 times in the past week. Stool is also black in color. Chest pain- with recent fall and bilateral rib fractures serial troponin serial EKG echocardiogram CXR and CT scan chest reviewed by myself and Dr. Neves no evidence of pneumothorax given patient history of cardiac surgery at and worsening chest pain over the past two months will consult cardiology diarrhea x 1 week, homeless patient C diff stool ova and paracytics stool culture stool for occult stool Leukocytosis- likely secondary to diarrhea stools for c diff, ova paracytics and culture UA no indication of UTI CXR reviewed by myself and Dr. Neves- No acute disease blood cultures obtained and pending Left gluteal hematoma- likely secondary to fall avoid anticoagulation- monitor for s/s of progression HTN- chronic not on medication at home monitor trend COPD- chronic appears stable continue Ventolin case management consulted for DC planning DVT prophylaxis SCDs discussed with ER provider, nursing and patient Written by Francine Kingsley, acting as scribe for Dr. Neves on 11/13/16 at 00: 24. This note was transcribed by scribe [Francine Kingsley]. I, Dr. Andrew Neves personally performed the history, physical exam, and medical decision making; and confirmed the accuracy of the information in the transcribed note. Authenticated by Dr. Andrew Neves on 11/13/16 at 00:24. Problem Qualifiers (1) Chest pain: Qualified Code: R07.9 - Chest pain, unspecified type Francine Kingsley Nov 13, 2016 00:22 Andrew Neves MD Nov 13, 2016 07:18
[2016-11-13 02:57] LABS: ANION GAP 6 MEQ/L (5-15); BICARBONATE 25.6 MEQ/L (21.0-32.0); BLOOD UREA NITROGEN 19 MG/DL (7-18); CHLORIDE 110 MEQ/L (98-107); GLOMERULAR FILTRATION RATE 128 ML/MIN (>89); POTASSIUM 3.9 MEQ/L (3.5-5.1); SODIUM (NA) 142 MEQ/L (136-145)
[2016-11-13] MEDS: ACETAMINOPHEN/HYDROcodone 325 MG/10 MG TAB PO PRN ×3 (03:10→19:43)
[2016-11-13] MEDS ORDERED: ALBUTEROL SULFATE 90 MCG/ACT HFA 18 GM INHALER INH PRN (03:15)
[2016-11-13] MEDS: MORPHINE SULFATE 4 MG/ML INJ IV PUSH PRN ×2 (05:44→22:35)
[2016-11-13 06:43] LABS: AUTOMATED NEUTROPHIL # 14.8 TH/MM3 (1.8-7.7); BASOPHIL # 0.1 TH/MM3 (0-0.2); BASOPHIL % 0.6 % (0.0-2.0); EOSINOPHIL # 0.4 TH/MM3 (0-0.4); EOSINOPHIL % 2.1 % (0.0-4.0); HEMATOCRIT 31.9 % (39.0-51.0); HEMO FLAGS DIFF FINAL; LYMPH % 7.7 % (9.0-44.0); LYMPHOCYTE # 1.4 TH/MM3 (1.0-4.8); MEAN CELL VOLUME 95.2 FL (80.0-100.0); MEAN CORPUSCULAR HEMOGLOBIN 32.1 PG (27.0-34.0); MEAN CORPUSCULAR HGB CONC 33.7 % (32.0-36.0); MONO % 7.9 % (0.0-8.0); NEUT % 81.7 % (16.0-70.0); PLATELET COUNT 425 TH/MM3 (150-450); RED BLOOD COUNT 3.35 MIL/MM3 (4.50-5.90); RED CELL DISTRIBUTION WIDTH 13.5 % (11.6-17.2); WHITE BLOOD COUNT 18.1 TH/MM3 (4.0-11.0)
[2016-11-13] MEDS: SODIUM CHLORIDE 0.9% FLUSH 10 ML FLUSH IV FLUSH SCH ×2 (10:20→22:29)
[2016-11-13] MEDS: SODIUM CHLOR 0.9% 1000 ML INJ 1,000 ML IV SCH (10:24)
--- NOTE | 2016-11-13 10:57 | EKG ---
Date Performed: 11/12/2016 Time Performed: 20:48:39 PTAGE: 60 years EKG: Sinus rhythm POSSIBLE LEFT ATRIAL ENLARGEMENT INCOMPLETE RIGHT BUNDLE BRANCH BLOCK POSSIBLE LEFT VENTRICULAR HYPE RTROPHY POSSIBLE LATERAL MYOCARDIAL INFARCTION ABNORMAL ECG Compared to prior tracing no significant change DOCTOR: Toshia Chowdhury Interpretating Date/Time 11/13/2016 10:56:45
--- NOTE | 2016-11-13 10:57 | EKG ---
Date Performed: 11/12/2016 Time Performed: 16:40:38 PTAGE: 60 years EKG: Sinus rhythm POSSIBLE LEFT ATRIAL ENLARGEMENT INCOMPLETE RIGHT BUNDLE BRANCH BLOCK POSSIBLE LEFT VENTRICULAR HYPE RTROPHY LATERAL MYOCARDIAL INFARCTION ACUTE MN Compared to prior tracing no significant change DOCTOR: Toshia Chowdhury Interpretating Date/Time 11/13/2016 10:56:30
[2016-11-13] MEDS: PANTOPRAZOLE SOD 20 MG DELAYED RELEASE TAB PO SCH (11:00)
--- NOTE | 2016-11-13 11:03 | HHI.PR ---
Subjective Remarks Follow-up for chest wall pain. The patient has congenital hearing loss and communicates by reading lips. He does not sign. The patient continues to complain of chest wall, left arm, buttocks pain from previous fall. No other acute complaints at this time. He last had loose stools on of last week. He reports nausea which he attributes to "nervousness". He denies any vomiting and tolerated breakfast with no difficulties. He normally ambulates using a rolling walker. He is currently homeless and [facility] [place] He's been trying to establish with the [facility], but would ideally like an assisted living facility. He states he tried to see a primary care doctor on [facility], but was referred to the hospital. Objective Vitals Vital Signs Date Time Temp Pulse Resp B/P Pulse Ox O2 Delivery O2 Flow Rate FiO2 11/13/16 08:42 97.6 85 16 123/73 96 11/13/16 06:09 98 21 11/13/16 03:32 99.0 91 20 130/60 97 11/13/16 02:00 96 20 146/63 98 Room Air 11/13/16 00:02 85 20 130/69 98 Room Air 11/12/16 20:35 89 20 113/86 98 11/12/16 20:16 20 11/12/16 17:00 Room Air 11/12/16 17:00 95 20 124/72 98 Room Air 11/12/16 17:00 20 97 Room Air 11/12/16 16:03 97.4 100 20 121/73 95 I/O 11/12/16 11/12/16 11/12/16 11/13/16 11/13/16 11/13/16 07:00 15:00 23:00 07:00 15:00 23:00 Intake Total 240 ml Output Total 250 ml Balance 240 ml -250 ml Intake Oral 240 ml Output Urine Total 250 ml Result Diagram: 11/13/16 0559 11/13/16 0200 Imaging Last Impressions Chest X-Ray 11/12/16 1610 Signed Impressions: Service Date/Time: Saturday, November 12, 2016 16:19 - CONCLUSION: No acute disease. Marcellus Cervantes MD Thoracic Spine X-Ray 11/12/16 0000 Signed Impressions: Service Date/Time: Saturday, November 12, 2016 16:28 - CONCLUSION: Negative trauma study. Marcellus Cervantes MD Chest CT 11/12/16 0000 Signed Impressions: Service Date/Time: Saturday, November 12, 2016 19:16 - CONCLUSION: 1. No acute thoracic process. 2. Paraseptal emphysema. 3. Scoliosis. Jermaine Zee MD Abdomen/Pelvis CT 11/12/16 0000 Signed Impressions: Service Date/Time: Saturday, November 12, 2016 19:16 - CONCLUSION: 1. Heterogeneity/hematoma left buttock musculature. 2. No acute fracture. 3. Scoliosis and degenerative changes. Jermaine Zee MD Objective Remarks GENERAL: Well-developed well-nourished. In no acute distress. Deafness, reads lips. SKIN: Warm and dry. Left buttock hematoma. HEENT: Normocephalic. Pupils equal and round. Mucous membranes pink and moist. CARDIOVASCULAR: Regular rate and rhythm. Systolic murmur appreciated. RESPIRATORY: No accessory muscle use. Clear to auscultation. Breath sounds equal bilaterally. GASTROINTESTINAL: Abdomen soft, non-tender, nondistended. Bowel sounds x4. MUSCULOSKELETAL: Congenital chest wall deformity. No clubbing or cyanosis. No edema. NEUROLOGICAL: Awake and alert. No focal neurological deficits. Moves upper and lower extremities spontaneously. Normal speech. PSYCHIATRIC: Appropriate mood and affect; insight and judgment normal. A/P Problem List: (1) Chest pain ICD Code: R07.9 Status: Acute Assessment and Plan This is a 60 year old male patient with a past medical history which includes Cerebral Palsy, congenital deafness, HTN, COPD and depression. Patient reports he was sent to ER by a doctor on pain management doctor on [facility] because of chest pain. Patient reports he has had chest pain for the past two months. Patient had a fall this past Friday at which time he fractured bilateral rib fractures R 9th and L 11th rib. Presented for worsening of chest wall discomfort. Chest wall pain- with recent fall and bilateral rib fractures on x-ray 11/07 serial troponins within normal limits EKG with nonspecific ST changes, no significant change from previous echocardiogram, although may be suboptimal study with congenital chest wall deformity CXR and CT chest with no evidence of pneumothorax Cardiology consulted, discussed with Dr. Watts, believes chest pain is noncardiac. Continue pain control with [place] and morphine Recurrent falls: Multiple ED visits for the same. Previous imaging has shown rib fractures as above, otherwise unremarkable. Ambulates using a rolling walker. PT eval Check B12, TSH, Vit D Diarrhea 1 week ago We'll check stool studies if patient has any further episodes Leukocytosis- unclear etiology, possibly reactive Check stool studies if further diarrhea UA with no indication of UTI CXR with no signs of infection blood cultures pending Afebrile WBCs downtrending Left gluteal hematoma- likely secondary to fall avoid anticoagulation- monitor for s/s of progression COPD- chronic appears stable continue Ventolin Nausea Start PPI Zofran prn DVT prophylaxis SCDs Discharge Planning Case management consulted for assistance with discharge planning. Problem Qualifiers (1) Chest pain: Qualified Code: R07.9 - Chest pain, unspecified type Patrick Strong Nov 13, 2016 11:02 Natacha Chanel MD Nov 13, 2016 14:33
--- NOTE | 2016-11-13 12:46 | MB ---
cc: MARSHALL ALLEN DO DATE OF CONSULTATION 11/13/2016 REASON FOR CONSULTATION Chest pain HISTORY OF PRESENT ILLNESS Dudley Berry is a pleasant 60-year-old male who presents to [facility] on November 12, 2016 due to chest pain. 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 He does have impaired speech, but is able to relay any information he needs without problem. He states that he has had multiple areas of chest pain over the past few months. Over the past week, it has been in the lower part of his sternum. He states that he had a fall on this past Friday and he sustained bilateral rib fractures of his right 9th and left 11th rib. He states that he has had multiple falls over the past year with one around two months ago where he was getting up and it was dark and fell backwards onto his back and ribs. He also had one sometime just after that where he fell forward and landed on his left side. His chest pain has been constant and hurts more with palpation or deep breathing. Chest pain is sharp in nature. Per the notes, he vomited the day before coming to the ER and he felt that it was black in color and he also feels that he had some diarrhea which was also somewhat black in color. He originally admitted to the primary says that when he had chest pain, he was short of breath and had stiffness in his arms. In discussing with him, he told me that his shortness of breath was because he could not take a deep breath. He did state that he was stiff in the arms during the episode. In seeing him at this time, he is currently chest pain free other than when his lower sternum is palpated. PAST MEDICAL HISTORY 1. 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 Cerebral palsy 3. Congenital deafness 4. Hypertension 5. COPD 6. Depression PAST SURGICAL HISTORY 1. Supposed cardiac surgery at per the patient. He has no sternal scars, but he does have an extensive chevron type surgical scar, but this would more likely be an abdominal surgery which she has no idea of. 2. Eye surgery 3. Reconstructive surgery of his left lower extremity. ALLERGIES 1. PHENERGAN 2. SULFA 3. ULTRAM MEDICATIONS 1. Albuterol 2 puffs every 6 hours as needed for shortness of breath 2. Ibuprofen 600 mg every 6 hours as needed 3. Lortab 10/325 mg every 6 hours as needed for pain. FAMILY HISTORY Mother had a heart problem and cancer. Father had a heart problem. He denies premature coronary artery disease or sudden cardiac within the family. SOCIAL HISTORY The patient previously smoked, but quit yesterday morning. He had a history of alcoholism 10-15 years ago. Denies drug abuse. REVIEW OF SYSTEMS 14-systems were reviewed including osteopathic pertinent positives and negatives as above, otherwise negative. PHYSICAL EXAMINATION VITAL SIGNS: Temperature 97.6, heart rate 85, blood pressure 123/73, respirations 16, pulse ox 96% on room air. GENERAL: The patient appears well in no acute distress, alert awake and oriented x3. HEAD, EYES, EARS, NOSE, AND THROAT: Extraocular muscles intact. Mucous membranes moist. NECK: Supple. No JVD at 45 degrees. No carotid bruits heard bilaterally. Carotid upstroke is brisk in nature. HEART: Regular rate and rhythm. Positive first and second heart sounds with no appreciable murmurs. CHEST: The chest wall is somewhat deformed with pectus excavatum. LUNGS: He has decreased breath sounds bilaterally, but no overt wheezes, rales or rhonchi. ABDOMEN: Soft, nontender and nondistended. No organomegaly noted. EXTREMITIES: Show no clubbing, cyanosis or edema. Femoral and distal pulses intact bilaterally. NEUROLOGIC: No focal deficits. SKIN: Warm, dry and intact. OSTEOPATHIC: No kyphoscoliosis, lordosis or paraspinal tender points. LABORATORY FINDINGS Hemoglobin 10.8, hematocrit 31.9, platelets 425. Potassium 3.9, BUN 19, creatinine 0.64, troponin negative x3. Electrocardiogram (November 13, 2016 at 0327) sinus rhythm, left atrial enlargement, incomplete right bundle branch block, LVH. IMPRESSION 1. Noncardiac chest pain most likely musculoskeletal which is increased with palpation. 2. History of cardiac surgery at the age of 4.5 by the patient, unsure what the surgery was. 3. Diarrhea 4. Leukocytosis 5. Left gluteal hematoma 6. History of hypertension. 7. History of COPD. RECOMMENDATIONS 1. Mr. Garcia chest pain appears to be noncardiac in nature as it is reproducible with recent rib fractures. He has had pain for the past two months and his pain continues to appear to be noncardiac as he has had multiple falls over the past few months. 2. We will attempt to get an echocardiogram to rule out any other causes, but my concern is with his chest wall deformity and pain with palpation this may be difficult. 3. Troponins have been negative showing no myocardial necrosis and the patient only has chest pain with palpation. From a cardiovascular standpoint after the echocardiogram, he can be discharged per the primary team. Thank you for allowing me to see to Dudley Berry. If there are any questions, please do not hesitate to call. Marshall Allen DO VGP/DJL /11:31 AM /12:24 PM
--- NOTE | 2016-11-13 13:40 | EC ---
Study Study Date:11/13/2016 STUDY CONCLUSIONS SUMMARY - Left ventricle: The cavity size was normal. Wall thickness was increased in a pattern of mild LVH. Systolic function was mildly reduced by visual assessment. The estimated ejection fraction was in the range of 45% to 55%. Wall motion was normal; there were no regional wall motion abnormalities. - Aortic valve: Trace regurgitation. - Mitral valve: Moderate to severe regurgitation directed eccentrically and anteriorly. - Left atrium: The atrium was mildly to moderately dilated. - Tricuspid valve: Mild regurgitation. - Pulmonary arteries: Systolic pressure was mildly increased. PA peak pressure: 47mm Hg (S). If LV function is below 40, please consider prescribing an ACEI or ARB or document rationale for non-use. PROCEDURE DATA STUDY STATUS: Elective. Procedure: Transthoracic echocardiography. Image quality was good. Scanning was performed from the parasternal, apical, and subcostal acoustic windows. Study completion: The patient tolerated the procedure well. Transthoracic echocardiography. M-mode, complete 2D, complete spectral Doppler, and color Doppler. Patient status: Inpatient. CARDIAC ANATOMY LEFT VENTRICLE: The cavity size was normal. Wall thickness was increased in a pattern of mild LVH. Systolic function was mildly reduced by visual assessment. The estimated ejection fraction was in the range of 45% to 55%. Wall motion was normal; there were no regional wall motion abnormalities. AORTIC VALVE: Trileaflet; normal thickness leaflets. Doppler: Transvalvular velocity was within the normal range. There was no stenosis. Trace regurgitation. Peak gradient: 18mm Hg (S). AORTA: Aortic root: The aortic root was normal in size. MITRAL VALVE: Structurally normal valve. Doppler: Transvalvular velocity was within the normal range. There was no evidence for stenosis. Moderate to severe regurgitation directed eccentrically and anteriorly. Peak gradient: 3mm Hg (D). LEFT ATRIUM: The atrium was mildly to moderately dilated. RIGHT VENTRICLE: The cavity size was normal. Wall thickness was normal. PULMONIC VALVE: Doppler: Transvalvular velocity was within the normal range. There was no evidence for stenosis. No regurgitation. TRICUSPID VALVE: Structurally normal valve. Doppler: Transvalvular velocity was within the normal range. Mild regurgitation. PULMONARY ARTERY: Systolic pressure was mildly increased. RIGHT ATRIUM: The atrium was normal in size. PERICARDIUM: There was no pericardial effusion. SYSTEMIC VEINS: Inferior vena cava: The vessel was normal in size. BASIC MEASUREMENTS ADULT Normal Left ventricle LV internal dimension, ED, chordal level, *63.9 mm 43-52 PLAX LV internal dimension, ES, chordal level, *50.5 mm 23-38 PLAX Fractional shortening, chordal level, PLAX *21 % >29 LV posterior wall thickness, ED 9.34 mm IVS/LVPW ratio, ED *1.46 <1.3 Ventricular septum Septal thickness, ED 13.6 mm Aortic valve Leaflet separation 25 mm 15-26 Left atrium Anterior-posterior dimension 42 mm Right ventricle RV internal dimension, ED, PLAX 22.7 mm 19-38 BASIC MEASUREMENTS ADULT Normal Aortic valve Leaflet separation 25 mm 15-26 Aorta Root diameter, ED 35 mm 20-37 DOPPLER MEASUREMENTS ADULT Normal Main pulmonary artery Pressure, S *47 mm Hg =30 Aortic valve Peak velocity, S 210 cm/s Peak gradient, S 18 mm Hg Mitral valve Peak E-wave velocity 91 cm/s Peak A-wave velocity 101 cm/s Peak gradient, D 3 mm Hg Peak E/A ratio 0.9 Maximal regurgitant velocity 597 cm/s Tricuspid valve Regurgitant peak velocity 259 cm/s Peak RV-RA gradient, S 27 mm Hg Maximal regurgitant velocity 259 cm/s Systemic veins Estimated CVP 15 mm Hg Right ventricle RV pressure, S *47 mm Hg <30 LEGEND: Mean values are shown as u=mean value. Asterisk (*) tang values outside specified normal range. Prepared and signed by Jose Menendez [id number]
--- NOTE | 2016-11-13 15:04 | PD.CARD.PN ---
Assessment and Plan Assessment and Plan Addendum to consult: Echo showing EF 50-55%, mod-severe MR Currently asymptomatic, no shortness of breath, would not pursue further at this time Marshall Nevarez DO Nov 13, 2016 15:04
--- NOTE | 2016-11-13 16:56 | EKG ---
Date Performed: 11/13/2016 Time Performed: 03:27:13 PTAGE: 60 years EKG: Sinus rhythm LEFT ATRIAL ENLARGEMENT INCOMPLETE RIGHT BUNDLE BRANCH BLOCK POSSIBLE LEFT VENTRICULAR HYPERTROPHY A BNORMAL ECG PREVIOUS TRACING : 11/13/2016 01.57 Since previous tracing, no significant change noted DOCTOR: Ziggy Wilson Interpretating Date/Time 11/13/2016 16:55:21
--- NOTE | 2016-11-13 16:56 | EKG ---
Date Performed: 11/13/2016 Time Performed: 01:57:10 PTAGE: 60 years EKG: Sinus rhythm POSSIBLE LEFT ATRIAL ENLARGEMENT INCOMPLETE RIGHT BUNDLE BRANCH BLOCK POSSIBLE LEFT VENTRICULAR HYPE RTROPHY ABNORMAL ECG PREVIOUS TRACING : 11/12/2016 20.48 Since previous tracing, no significant change noted DOCTOR: Ziggy Wilson Interpretating Date/Time 11/18/2016 08:50:48
[2016-11-14] VITALS (9 sets, daily range): BP systolic 126–149; BP diastolic 63–87; PULSE 78–95; RESP 18; TEMP 97.5–98.3; O2SAT 94–98
[2016-11-14] MEDS: ACETAMINOPHEN/HYDROcodone 325 MG/10 MG TAB PO PRN ×2 (01:58→10:58)
[2016-11-14 05:26] LABS: AUTOMATED NEUTROPHIL # 15.1 TH/MM3 (1.8-7.7); BASOPHIL # 0.2 TH/MM3 (0-0.2); BASOPHIL % 0.9 % (0.0-2.0); EOSINOPHIL # 0.5 TH/MM3 (0-0.4); EOSINOPHIL % 2.6 % (0.0-4.0); HEMATOCRIT 33.9 % (39.0-51.0); HEMO FLAGS DIFF FINAL; LYMPH % 9.7 % (9.0-44.0); LYMPHOCYTE # 1.8 TH/MM3 (1.0-4.8); MEAN CELL VOLUME 95.9 FL (80.0-100.0); MEAN CORPUSCULAR HEMOGLOBIN 32.2 PG (27.0-34.0); MEAN CORPUSCULAR HGB CONC 33.6 % (32.0-36.0); MONO % 6.8 % (0.0-8.0); PLATELET COUNT 469 TH/MM3 (150-450); RED BLOOD COUNT 3.54 MIL/MM3 (4.50-5.90); RED CELL DISTRIBUTION WIDTH 13.7 % (11.6-17.2); WHITE BLOOD COUNT 18.9 TH/MM3 (4.0-11.0)
[2016-11-14] MEDS: MORPHINE SULFATE 4 MG/ML INJ IV PUSH PRN ×3 (05:38→21:40)
[2016-11-14 05:46] LABS: BICARBONATE 25.9 MEQ/L (21.0-32.0); POTASSIUM 4.2 MEQ/L (3.5-5.1)
--- NOTE | 2016-11-14 10:03 | PD.CARD.PN ---
Subjective Subjective Remarks Chest pain with palpation, no shortness of breath Objective Medications Current Medications Medications (Trade) Dose Ordered Sig/Zaira Route Start Time Stop Time Status Last Admin (NS Flush) 2 ml UNSCH PRN IV FLUSH 11/12/16 21:15 11/14/16 05:38 (NS Flush) 2 ml BID IV FLUSH 11/13/16 09:00 11/13/16 22:29 (Tylenol) 650 mg Q4H PRN PO 11/12/16 21:15 (Zofran Inj) 4 mg Q6H PRN IVP 11/12/16 21:15 11/12/16 23:59 (Narcan Inj) 0.4 mg UNSCH PRN IV 11/12/16 21:15 (Ventolin Hfa Inh) 2 puff Q4H PRN INH 11/13/16 03:15 ([place] 10-325 Mg) 1 tab Q6H PRN PO 11/13/16 03:00 11/14/16 01:58 (Morphine Inj) 2 mg Q4H PRN IV PUSH 11/13/16 03:00 11/14/16 05:38 (Protonix) 20 mg DAILY PO 11/13/16 11:00 11/13/16 11:00 Vital Signs / I&O Vital Signs Date Time Temp Pulse Resp B/P Pulse Ox O2 Delivery O2 Flow Rate FiO2 11/14/16 07:33 98.2 87 18 132/63 97 11/14/16 03:39 97.5 91 18 141/87 95 11/14/16 03:32 78 11/14/16 00:00 98.3 95 18 141/77 96 11/13/16 20:55 99.2 102 18 147/85 93 11/13/16 15:33 98.0 86 18 130/72 95 11/13/16 12:38 98.1 81 16 121/66 95 I/O 11/13/16 11/13/16 11/13/16 11/14/16 11/14/16 11/14/16 07:00 15:00 23:00 07:00 15:00 23:00 Intake Total 240 ml Output Total 250 ml 400 ml Balance 240 ml -250 ml -400 ml Intake Oral 240 ml Output Urine Total 250 ml 400 ml Physical Exam GENERAL: NAD, AAOx3 SKIN: Warm and dry. HEAD: Atraumatic. Normocephalic. EYES: Pupils equal and round. No scleral icterus. No injection or drainage. ENT: No nasal bleeding or discharge. Mucous membranes pink and moist. NECK: Trachea midline. No JVD. CARDIOVASCULAR: Regular rate and rhythm. Chest wall pectus excavatum RESPIRATORY: No accessory muscle use. Clear to auscultation. Breath sounds equal bilaterally. GASTROINTESTINAL: Abdomen soft, non-tender, nondistended. Hepatic and splenic margins not palpable. MUSCULOSKELETAL: Extremities without clubbing, cyanosis, or edema. No obvious deformities. NEUROLOGICAL: Awake and alert. No obvious cranial nerve deficits. Motor grossly within normal limits. Five out of 5 muscle strength in the arms and legs. Normal speech. PSYCHIATRIC: Appropriate mood and affect; insight and judgment normal. Laboratory Laboratory Tests Test 11/13/16 11/14/16 12:13 04:43 Troponin I LESS THAN 0.02 NG/ML White Blood Count 18.9 TH/MM3 Red Blood Count 3.54 MIL/MM3 Hemoglobin 11.4 GM/DL Hematocrit 33.9 % Mean Corpuscular Volume 95.9 FL Mean Corpuscular Hemoglobin 32.2 PG Mean Corpuscular Hemoglobin 33.6 % Concent Red Cell Distribution Width 13.7 % Platelet Count 469 TH/MM3 Mean Platelet Volume 7.8 FL Neutrophils (%) (Auto) 80.0 % Lymphocytes (%) (Auto) 9.7 % Monocytes (%) (Auto) 6.8 % Eosinophils (%) (Auto) 2.6 % Basophils (%) (Auto) 0.9 % Neutrophils # (Auto) 15.1 TH/MM3 Lymphocytes # (Auto) 1.8 TH/MM3 Monocytes # (Auto) 1.3 TH/MM3 Eosinophils # (Auto) 0.5 TH/MM3 Basophils # (Auto) 0.2 TH/MM3 CBC Comment DIFF FINAL Differential Comment Sodium Level 137 MEQ/L Potassium Level 4.2 MEQ/L Chloride Level 104 MEQ/L Carbon Dioxide Level 25.9 MEQ/L Anion Gap 7 MEQ/L Blood Urea Nitrogen 11 MG/DL Creatinine 0.48 MG/DL Estimat Glomerular Filtration 177 ML/MIN Rate Random Glucose 92 MG/DL Calcium Level 7.9 MG/DL Assessment and Plan Problem List: (1) Chest pain (2) Recurrent falls while walking (3) COPD (chronic obstructive pulmonary disease) (4) Rib fractures (5) Contusion of left front wall of thorax Assessment and Plan 1) Chest pain non-cardiac, pain from multiple falls, increased with palpation 2) Echo showing EF 50-55%, mod-severe MR, currently asymptomatic, no shortness of breath, would not pursue further at this time 3) Primary team discussed with him about follow up, and if increasing symptoms will need further work up 4) Cardiovascularly stable for discharge Problem Qualifiers (1) Chest pain: Qualified Code: R07.9 - Chest pain, unspecified type Marshall Nevarez DO Nov 14, 2016 10:03
[2016-11-14] MEDS: SODIUM CHLORIDE 0.9% FLUSH 10 ML FLUSH IV FLUSH SCH ×2 (10:58→19:50)
[2016-11-14] MEDS: PANTOPRAZOLE SOD 20 MG DELAYED RELEASE TAB PO SCH (10:58)
--- NOTE | 2016-11-14 11:43 | HHI.PR ---
Subjective Remarks Follow-up for pain status post fall. The patient continues to complain of chest pain and shortness breath due to rib fractures. The patient states that he was able to walk some with PT yesterday, but had a hard time secondary to left hip pain which has been present since his fall last week. The patient denies any fevers. He reports occasional nausea, no vomiting. No diarrhea. Objective Vitals Vital Signs Date Time Temp Pulse Resp B/P Pulse Ox O2 Delivery O2 Flow Rate FiO2 11/14/16 11:29 97.9 85 18 149/87 98 11/14/16 07:33 98.2 87 18 132/63 97 11/14/16 03:39 97.5 91 18 141/87 95 11/14/16 03:32 78 11/14/16 00:00 98.3 95 18 141/77 96 11/13/16 20:55 99.2 102 18 147/85 93 11/13/16 15:33 98.0 86 18 130/72 95 11/13/16 12:38 98.1 81 16 121/66 95 I/O 11/13/16 11/13/16 11/13/16 11/14/16 11/14/16 11/14/16 07:00 15:00 23:00 07:00 15:00 23:00 Intake Total 240 ml Output Total 250 ml 400 ml Balance 240 ml -250 ml -400 ml Intake Oral 240 ml Output Urine Total 250 ml 400 ml Result Diagram: 11/14/16 0443 11/14/16 0443 Imaging Last Impressions Chest X-Ray 11/12/16 1610 Signed Impressions: Service Date/Time: Saturday, November 12, 2016 16:19 - CONCLUSION: No acute disease. Marcellus Cervantes MD Thoracic Spine X-Ray 11/12/16 0000 Signed Impressions: Service Date/Time: Saturday, November 12, 2016 16:28 - CONCLUSION: Negative trauma study. Marcellus Cervantes MD Chest CT 11/12/16 0000 Signed Impressions: Service Date/Time: Saturday, November 12, 2016 19:16 - CONCLUSION: 1. No acute thoracic process. 2. Paraseptal emphysema. 3. Scoliosis. Jermaine Zee MD Abdomen/Pelvis CT 11/12/16 0000 Signed Impressions: Service Date/Time: Saturday, November 12, 2016 19:16 - CONCLUSION: 1. Heterogeneity/hematoma left buttock musculature. 2. No acute fracture. 3. Scoliosis and degenerative changes. Jermaine Zee MD Objective Remarks GENERAL: Well-developed well-nourished. In no acute distress. Deafness, reads lips. SKIN: Warm and dry. Small left buttock hematoma. HEENT: Normocephalic. Pupils equal and round. Mucous membranes pink and moist. CARDIOVASCULAR: Regular rate and rhythm. Systolic murmur appreciated. RESPIRATORY: No accessory muscle use. Clear to auscultation. Breath sounds equal bilaterally. GASTROINTESTINAL: Abdomen soft, non-tender, nondistended. Bowel sounds x4. MUSCULOSKELETAL: Congenital chest wall deformity. No clubbing or cyanosis. No edema. Left hip tender to palpation. NEUROLOGICAL: Awake and alert. No focal neurological deficits. Moves upper and lower extremities spontaneously. Normal speech. PSYCHIATRIC: Appropriate mood and affect; insight and judgment normal. A/P Problem List: (1) Chest pain ICD Code: R07.9 Status: Acute Assessment and Plan This is a 60 year old male patient with a past medical history which includes Cerebral Palsy, congenital deafness, HTN, COPD and depression. Patient reports he was sent to ER by a doctor on pain management doctor on [facility] because of chest pain. Patient reports he has had chest pain for the past two months. Patient had a fall this past Friday at which time he fractured bilateral rib fractures R 9th and L 11th rib. Presented for worsening of chest wall discomfort. Chest wall pain- with recent fall and bilateral rib fractures on x-ray 11/07 serial troponins within normal limits EKG with nonspecific ST changes, no significant change from previous echocardiogram, although may be suboptimal study with congenital chest wall deformity CXR and CT chest with no evidence of pneumothorax Cardiology consulted, discussed with Dr. Watts, believes chest pain is noncardiac. Continue pain control with [place] and morphine Recurrent falls: Multiple ED visits for the same. Previous imaging has shown rib fractures as above, otherwise unremarkable including hip x-ray 11/09. Ambulates using a rolling walker. PT consulted, recommends SNF, although the patient is fairly ambulatory. Checked B12 and TSH, within normal limits Vit D pending Consult case management IV morphine for intractable pain Diarrhea 1 week ago We'll check stool studies if patient has any further episodes Leukocytosis- unclear etiology, new since September. WBC worsening today. Meets SIRS criteria with tachycardia. Tmax 99.0. UA with no indication of UTI. CXR with no signs of infection. blood cultures with NGTD Check stool studies if further diarrhea Consult ID Left gluteal hematoma- likely secondary to fall Resolving well avoid anticoagulation COPD- chronic appears stable continue Ventolin Nausea Continue PPI with Zofran prn DVT prophylaxis SCDs Written by Patrick Strong, acting as scribe for Dr. Chanel on 11/14/16 at 11:42. This note was transcribed by livan SNOW. I, Dr. Natacha Chanel personally performed the history, physical exam, and medical decision making; and confirmed the accuracy of the information in the transcribed note. Authenticated by Dr. Natacha Chanel on 11/14/16 at 11:42. Discharge Planning Case management consulted for assistance with discharge planning. Admitted inpatient with intractable pain requiring IV narcotics as well as SIRS with suspected underlying infection. Problem Qualifiers (1) Chest pain: Qualified Code: R07.9 - Chest pain, unspecified type Patrick Strong Nov 14, 2016 11:43 Natacha Chanel MD Nov 14, 2016 14:59
--- NOTE | 2016-11-14 17:11 | MB ---
cc: TRISTAN RINCON MD DATE OF CONSULTATION: 11/14/2016 REQUESTING PHYSICIAN: Patrick Strong REASON FOR CONSULTATION: Persistent leukocytosis. HISTORY OF PRESENT ILLNESS: This is a 61-year-old white male who presented to the emergency department via [facility]. The patient presented with chest pain. He has had recent falls. He fell on his left buttock and injured the ribs about a week and half ago and after that he fell on his chest. He states that he has difficulty walking properly because of cerebral palsy. He has been walking with a roller walker and he says that he fell backwards at one point, he was trying to hold onto the rolling walker and fell down. He was being evaluated for left-sided chest pain this admission. His white blood cell count was noted to be elevated. The patient is able to communicate at deficiency although he does have a speech impediment as a result of the cerebral palsy. He appears to be a fairly good historian. He denies cough or shortness of breath and denies nausea or vomiting, diarrhea. He notes that he has pain in the buttock, arms, chest and back. He states that sometimes he gets fevers or chills but none recently. The workup so far has included urinalysis which was unremarkable on 11/12, blood cultures from 11/12 is negative in 2 days. Chest x-ray Shows no acute disease. A CT scan of abdominal pelvis on November 12 showed hematoma at the left buttock musculature. No acute fracture. Scoliosis and degenerative changes and degenerative changes were noted. CT scan of the chest showed no acute thoracic process. LABORATORY FINDINGS: The patients white blood cell count is elevated at 18.9. It was 24.2 on 11/12/2016. PAST MEDICAL HISTORY: 1. past medical history of cerebral palsy. 2. Congenital deafness 3. Hypertension 4. COPD 5. Depression 6. history of eye surgery. 7. History of left lower extremity reconstructive surgery. ALLERGIES SULFA ULTRAM PHENERGAN MEDICATIONS: 1. Albuterol. 2. Protonix. 3. [place] 5 p.r.n. 4. Morphine sulfate. 5. The patient received a dose of Vancomycin on 11/12. 6. The patient received a dose of cefepime on 11/12. SOCIAL HISTORY The patient smokes half-a-pack of cigarettes a day. No alcohol. The patient denies illicit drugs. FAMILY HISTORY Noncontributory. REVIEW OF SYSTEMS Review of systems is negative on 10-point review except for diffuse aches and pains including pain in the left buttock. PHYSICAL EXAMINATION IN GENERAL: This is a pleasant slender male who is in no acute distress. He communicates with garbled speech but is able to comprehend with reading the lips of the persons communicating with him. VITAL SIGNS: Include temperature of 97.9, BP 114/87, respirations 1885. HEAD, EYES, EARS, NOSE, AND THROAT: Head is atraumatic. Extraocular movements grossly intact. No icterus. No conjunctival erythema. Oropharynx moist mucosa. No visible lesions. NECK: Neck is supple. No swelling. No adenopathy. LUNGS: Clear breath sounds bilateral. HEART: Regular sinus to without audible murmurs. ABDOMEN: Flat, soft, no tenderness appreciated. RECTUM: Rectal was not performed. EXTREMITIES: No clubbing or cyanosis or edema. The patient has a area of swelling and redness at the left buttock. This measures approximately 6 cm diameter and it is extremely tender on palpation and very warm. SKIN: No diffuse rash. NEUROLOGIC: No gross focal findings. PSYCHIATRIC: The patient is calm and cooperative. LABORATORY DATA WBC 18.9, platelets 469, 80% neutrophils, hemoglobin 11.4, creatinine 0.48, BUN 11, estimated GFR 177, sodium 137. IMPRESSION 1. Leukocytosis. 2. Left buttock cellulitis. Probable early formation of abscess at the left buttock. 3. Post fall. 4. Patient with cerebral palsy. RECOMMENDATIONS The only apparent source of the leukocytosis from infection standpoint is the left buttock area of erythema. RECOMMENDATIONS 1. Begin intravenous Ancef. 2. Monitor white blood cell count 3. Monitor the left buttock cellulitis / swelling. 4. Continue to follow the blood cultures until completion. The Blood cultures are negative at day two. Thank you for this consultation. I will monitor the patient's progress and make further recommendations on followup. Tristan Rincon MD FD/phillip /1:31 PM /4:47 PM
[2016-11-14] MEDS: ACETAMINOPHEN/HYDROcodone 325 MG/5 MG TAB PO PRN (19:51)
[2016-11-15] VITALS (9 sets, daily range): BP systolic 120–155; BP diastolic 69–94; PULSE 78–92; RESP 18; TEMP 97.6–98.4; O2SAT 96–99
[2016-11-15] MEDS: MORPHINE SULFATE 4 MG/ML INJ IV PUSH PRN ×3 (03:30→18:52)
--- NOTE | 2016-11-15 08:01 | HHI.PR ---
Subjective Remarks Follow up for fall, rib pain, left buttock cellulitis, leukocytosis. The patient complains of left shoulder pain, says he always has the pain but it is worse today. Otherwise his chest pain has improved. Denies any further diarrhea , had 1 normal BM last night. Denies any other medical complaints. No fevers/ chills. Tolerating oral intake. Objective Vitals Vital Signs Date Time Temp Pulse Resp B/P Pulse Ox O2 Delivery O2 Flow Rate FiO2 11/15/16 07:36 98.4 85 18 138/74 96 11/15/16 05:54 97.8 86 18 120/72 97 11/15/16 03:46 18 11/15/16 01:02 78 18 122/69 97 11/14/16 23:59 85 11/14/16 21:38 18 11/14/16 21:19 98.2 84 18 126/82 97 11/14/16 15:42 97.5 83 18 145/84 94 11/14/16 11:29 97.9 85 18 149/87 98 11/14/16 10:24 83 I/O 11/14/16 11/14/16 11/14/16 11/15/16 11/15/16 11/15/16 07:00 15:00 23:00 07:00 15:00 23:00 Output Total 400 ml Balance -400 ml Output Urine Total 400 ml Result Diagram: 11/14/16 0443 11/14/16 0443 Imaging Last Impressions Chest X-Ray 11/12/16 1610 Signed Impressions: Service Date/Time: Saturday, November 12, 2016 16:19 - CONCLUSION: No acute disease. Marcellus Cervantes MD Thoracic Spine X-Ray 11/12/16 0000 Signed Impressions: Service Date/Time: Saturday, November 12, 2016 16:28 - CONCLUSION: Negative trauma study. Marcellus Cervantes MD Chest CT 11/12/16 0000 Signed Impressions: Service Date/Time: Saturday, November 12, 2016 19:16 - CONCLUSION: 1. No acute thoracic process. 2. Paraseptal emphysema. 3. Scoliosis. Jermaine Zee MD Abdomen/Pelvis CT 11/12/16 0000 Signed Impressions: Service Date/Time: Saturday, November 12, 2016 19:16 - CONCLUSION: 1. Heterogeneity/hematoma left buttock musculature. 2. No acute fracture. 3. Scoliosis and degenerative changes. Jermaine Zee MD Objective Remarks GENERAL: Well-nourished, well-developed patient in NAD. Hearing impaired, reads lips. SKIN: Warm and dry. Left buttock with hematoma and surrounding erythema. HEENT: Normocephalic. Atraumatic.Pupils equal and round. Mucous membranes pink and moist. NECK: Supple. Trachea midline. CARDIOVASCULAR: Regular rate and rhythm. S1, S2 noted. Systolic murmur noted. Congenital chest wall deformity. RESPIRATORY: No accessory muscle use. Clear to auscultation. Breath sounds equal bilaterally. GASTROINTESTINAL: Abdomen soft, non-tender, nondistended. Normoactive bowel sounds x4. MUSCULOSKELETAL: No obvious deformities. Extremities without clubbing, cyanosis , or edema. NEUROLOGICAL: Awake and alert. No obvious cranial nerve deficits. Motor grossly within normal limits. PSYCHIATRIC: Appropriate mood and affect; insight and judgment normal. Medications and IVs Current Medications Medications (Trade) Dose Ordered Sig/Zaira Route Start Time Stop Time Status Last Admin (NS Flush) 2 ml UNSCH PRN IV FLUSH 11/12/16 21:15 11/14/16 05:38 (NS Flush) 2 ml BID IV FLUSH 11/13/16 09:00 11/14/16 19:50 (Tylenol) 650 mg Q4H PRN PO 11/12/16 21:15 (Zofran Inj) 4 mg Q6H PRN IVP 11/12/16 21:15 11/12/16 23:59 (Narcan Inj) 0.4 mg UNSCH PRN IV 11/12/16 21:15 (Ventolin Hfa Inh) 2 puff Q4H PRN INH 11/13/16 03:15 (Protonix) 20 mg DAILY PO 11/13/16 11:00 11/14/16 10:58 (Morphine Inj) 1 mg Q4H PRN IV PUSH 11/14/16 11:30 11/15/16 03:30 Acetaminophen/ Hydrocodone Bitart 1 tab 1 tab Q6H PRN PO 11/14/16 11:30 11/14/16 19:51 (Ancef Inj/NS Inj) 100 ml @ 200 mls/hr Q8H IV 11/15/16 02:30 11/15/16 02:37 A/P Problem List: (1) Chest pain ICD Code: R07.9 Status: Acute Assessment and Plan 61 year old male patient with a past medical history which includes Cerebral Palsy, congenital deafness, HTN, COPD and depression. Patient reports he was sent to ER by a doctor on pain management doctor on [facility] because of chest pain. Patient reports he has had chest pain for the past two months. Patient had a fall this past Friday at which time he fractured bilateral rib fractures R 9th and L 11th rib. Presented for worsening of chest wall discomfort. Chest wall pain- with recent fall and bilateral rib fractures on x-ray 11/07 ACS ruled out with negative serial troponins and EKG with nonspecific ST changes, no significant change from previous Echocardiogram with EF 45-55%, mod-severe MR CXR and CT chest images reviewed, no evidence of pneumothorax Cardiology consulted, seen by Dr. Watts, chest pain is noncardiac, cleared for discharge from cardiac standpoint. Continue pain control with [place] and IV morphine prn Recurrent falls: Multiple ED visits for the same. Previous imaging has shown rib fractures as above, otherwise unremarkable including hip x-ray 11/09. Ambulates using a rolling walker. PT consulted, recommends SNF, although the patient is fairly ambulatory. B12 and TSH within normal limits Vit D pending Consult case management for rehab placement IV morphine for intractable pain Diarrhea 1 week ago Check stool studies if patient has any further episodes no further episodes, diarrhea resolved SIRS with Leukocytosis/Tachycardia- leukocytosis new since September. WBC worsening , suspected source Left Buttock Cellulitis. UA with no indication of UTI. CXR with no signs of infection. blood cultures with NGTD Check stool studies if further diarrhea Consult ID, started on IV Ancef, recommends following blood culture until completion monitor CBC, improved today, leukocytosis trended down from 24K --> 18.9K -- > 12.0K Left gluteal hematoma with cellulitis, possible early abscess Continue IV Ancef per ID avoid anticoagulation COPD- chronic appears stable, continue Ventolin Nausea- Continue PPI with Zofran prn Acute on Chronic Left Shoulder Pain: with recent fall Check left shoulder xray pain control with norco prn DVT prophylaxis SCDs Written by Carolynn Conte, acting as scribe for Dr. Chanel on 11/15/16 at 11:26 This note was transcribed by livan SNOW. I, Dr. Natacha Chanel personally performed the history, physical exam, and medical decision making; and confirmed the accuracy of the information in the transcribed note. Authenticated by Dr. Natacha Chanel on 11/15/16 at 11:26 Discharge Planning The patient has been accepted to [facility] rehab. Hopefully discharge tomorrow if ok with infectious disease. Problem Qualifiers (1) Chest pain: Qualified Code: R07.9 - Chest pain, unspecified type Carolynn Conte PA-C Nov 15, 2016 08:01 Natacha Chanel MD Nov 15, 2016 12:28
[2016-11-15] MEDS: PANTOPRAZOLE SOD 20 MG DELAYED RELEASE TAB PO SCH (09:39)
[2016-11-15] MEDS: ACETAMINOPHEN/HYDROcodone 325 MG/5 MG TAB PO PRN (09:39)
[2016-11-15] MEDS: SODIUM CHLORIDE 0.9% FLUSH 10 ML FLUSH IV FLUSH SCH ×2 (09:40→23:30)
[2016-11-15 10:54] LABS: AUTOMATED NEUTROPHIL # 9.5 TH/MM3 (1.8-7.7); BASOPHIL # 0.1 TH/MM3 (0-0.2); BASOPHIL % 0.8 % (0.0-2.0); EOSINOPHIL # 0.3 TH/MM3 (0-0.4); EOSINOPHIL % 2.8 % (0.0-4.0); HEMATOCRIT 33.5 % (39.0-51.0); HEMO FLAGS DIFF FINAL; LYMPHOCYTE # 1.2 TH/MM3 (1.0-4.8); MEAN CELL VOLUME 95.3 FL (80.0-100.0); MEAN CORPUSCULAR HEMOGLOBIN 32.6 PG (27.0-34.0); MEAN CORPUSCULAR HGB CONC 34.2 % (32.0-36.0); MONO % 7.5 % (0.0-8.0); NEUT % 78.9 % (16.0-70.0); PLATELET COUNT 495 TH/MM3 (150-450); RED BLOOD COUNT 3.51 MIL/MM3 (4.50-5.90); RED CELL DISTRIBUTION WIDTH 13.5 % (11.6-17.2)
--- NOTE | 2016-11-15 15:58 | RADRPT ---
EXAM DATE/TIME: 11/15/2016 15:21 [place] COMPARISON: No previous studies available for comparison. INDICATIONS : Left shoulder pain for 3 days post fall MEDICAL HISTORY : None. SURGICAL HISTORY : None. ENCOUNTER: Initial ACUITY: 3 days PAIN SCORE: 10/10 LOCATION: Left entire shoulder FINDINGS: Multiple view examination of the left shoulder demonstrates no evidence of fracture or dislocation. The glenohumeral and acromioclavicular joints are maintained. Mild degenerative changes noted in the acromioclavicular joint. There is normal range of motion between internal and external rotation. Bon y mineralization is normal. CONCLUSION: Mild degenerative change in the acromioclavicular joint with no acute fracture or mal alignment. Marcellus Cervantes MD on November 15, 2016 at 15:56 Board Certified Radiologist. This report was verified electronically.
--- NOTE | 2016-11-15 18:24 | HHI.IDPN ---
Note Infectious Disease Note Patient asking for pain medicine. says his left shoulder hurts. Afebrile. No chills. PAST MEDICAL HISTORY: 1. past medical history of cerebral palsy. 2. Congenital deafness 3. Hypertension 4. COPD 5. Depression 6. history of eye surgery. 7. History of left lower extremity reconstructive surgery. ALLERGIES SULFA ULTRAM PHENERGAN Current Medications Medications (Trade) Dose Ordered Sig/Zaira Route PRN Reason Start Time Stop Time Status Last Admin Dose Admin Sodium Chloride (NS Flush) 2 ml UNSCH PRN IV FLUSH FLUSH AFTER USING IV ACCESS 11/12/16 21:15 11/14/16 05:38 Sodium Chloride (NS Flush) 2 ml BID IV FLUSH 11/13/16 09:00 11/15/16 09:40 Acetaminophen (Tylenol) 650 mg Q4H PRN PO TEMP > 100.4 11/12/16 21:15 Ondansetron HCl (Zofran Inj) 4 mg Q6H PRN IVP NAUSEA OR VOMITING 11/12/16 21:15 11/12/16 23:59 Naloxone HCl (Narcan Inj) 0.4 mg UNSCH PRN IV SEE LABEL COMMENTS 11/12/16 21:15 Albuterol Sulfate (Ventolin Hfa Inh) 2 puff Q4H PRN INH SHORTNESS OF BREATH 11/13/16 03:15 Pantoprazole Sodium (Protonix) 20 mg DAILY PO 11/13/16 11:00 11/15/16 09:39 Morphine Sulfate (Morphine Inj) 1 mg Q4H PRN IV PUSH BREAKTHROUGH PAIN 11/14/16 11:30 11/15/16 14:37 Acetaminophen/ Hydrocodone Bitart 1 tab 1 tab Q6H PRN PO PAIN SCALE 1 TO 7 11/14/16 11:30 11/15/16 09:39 Cefazolin Sodium/ Sodium Chloride (Ancef Inj/NS Inj) 100 ml @ 200 mls/hr Q8H IV 11/15/16 02:30 11/15/16 12:00 Acetaminophen/ Hydrocodone Bitart (Mobile 7.5-325 Mg) 1 tab Q6H PRN PO PAIN SCALE 8 - 10 11/15/16 11:30 SOCIAL HISTORY The patient smokes half-a-pack of cigarettes a day. No alcohol. The patient denies illicit drugs. FAMILY HISTORY Noncontributory. OBJECTIVE: Vital Signs Date Time Temp Pulse Resp B/P Pulse Ox O2 Delivery O2 Flow Rate FiO2 11/15/16 16:16 97.9 91 18 155/94 99 11/15/16 12:36 98 21 11/15/16 11:35 98.0 81 18 144/73 97 11/15/16 10:00 84 11/15/16 07:36 98.4 85 18 138/74 96 11/15/16 05:54 97.8 86 18 120/72 97 11/15/16 03:46 18 11/15/16 01:02 78 18 122/69 97 11/14/16 23:59 85 11/14/16 21:38 18 11/14/16 21:19 98.2 84 18 126/82 97 11/14/16 11/14/16 11/15/16 15:00 23:00 07:00 Output Total 400 ml Balance -400 ml Output Urine Total 400 ml Laboratory Tests Test 11/14/16 11/15/16 04:43 10:23 White Blood Count 18.9 TH/MM3 12.0 TH/MM3 Red Blood Count 3.54 MIL/MM3 3.51 MIL/MM3 Hemoglobin 11.4 GM/DL 11.5 GM/DL Hematocrit 33.9 % 33.5 % Mean Corpuscular Volume 95.9 FL 95.3 FL Mean Corpuscular Hemoglobin 32.2 PG 32.6 PG Mean Corpuscular Hemoglobin 33.6 % 34.2 % Concent Red Cell Distribution Width 13.7 % 13.5 % Platelet Count 469 TH/MM3 495 TH/MM3 Mean Platelet Volume 7.8 FL 7.3 FL Neutrophils (%) (Auto) 80.0 % 78.9 % Lymphocytes (%) (Auto) 9.7 % 10.0 % Monocytes (%) (Auto) 6.8 % 7.5 % Eosinophils (%) (Auto) 2.6 % 2.8 % Basophils (%) (Auto) 0.9 % 0.8 % Neutrophils # (Auto) 15.1 TH/MM3 9.5 TH/MM3 Lymphocytes # (Auto) 1.8 TH/MM3 1.2 TH/MM3 Monocytes # (Auto) 1.3 TH/MM3 0.9 TH/MM3 Eosinophils # (Auto) 0.5 TH/MM3 0.3 TH/MM3 Basophils # (Auto) 0.2 TH/MM3 0.1 TH/MM3 CBC Comment DIFF FINAL DIFF FINAL Differential Comment Laboratory Tests Test 11/14/16 11/15/16 04:43 10:23 Sodium Level 137 MEQ/L Potassium Level 4.2 MEQ/L Chloride Level 104 MEQ/L Carbon Dioxide Level 25.9 MEQ/L Anion Gap 7 MEQ/L Blood Urea Nitrogen 11 MG/DL Creatinine 0.48 MG/DL Estimat Glomerular Filtration 177 ML/MIN Rate Random Glucose 92 MG/DL Calcium Level 7.9 MG/DL 25-Hydroxy Vitamin D Total 10.1 ng/ML PHYSICAL EXAMINATION GENERAL: No acute distress. He communicates with garbled speech but is able to comprehend with reading the lips of the persons communicating with him. HEENT: Head is atraumatic. No icterus. No conjunctival erythema. Oropharynx moist mucosa. No visible lesions. NECK: Neck is supple. No swelling. No adenopathy. LUNGS: Clear breath sounds bilateral. HEART: Regular sinus rhythm without audible murmurs. ABDOMEN: Flat, soft, no tenderness appreciated. EXTREMITIES: No clubbing or cyanosis or edema. The area of swelling and redness at the left buttock is decreased and less erythematous. SKIN: No diffuse rash. NEUROLOGIC: No gross focal findings. PSYCHIATRIC: The patient is calm and cooperative. IMPRESSION 1. Leukocytosis. Improving. 2. Left buttock cellulitis. Probable early formation of abscess at the left buttock. Improving. RECOMMENDATIONS Can change Ancef to PO keflex tomorrow. If it is felt he cannot be compliant with QID PO medicine x 7 more days, can give another couple of days IV Ancef. I will sign off now. Barrie Fournier MD Nov 15, 2016 18:24
[2016-11-15] MEDS: ACETAMINOPHEN/HYDROcodone 325 MG/7.5 MG TAB PO PRN (23:31)
[2016-11-16 00:45] VITALS: PULSE 89
[2016-11-16 00:50] VITALS: BP 120/68; PULSE 94; RESP 18; TEMP 98.1; O2SAT 96
[2016-11-16] MEDS: MORPHINE SULFATE 4 MG/ML INJ IV PUSH PRN ×2 (05:19→10:44)
[2016-11-16] MEDS: ACETAMINOPHEN/HYDROcodone 325 MG/7.5 MG TAB PO PRN (07:39)
[2016-11-16 07:43] VITALS: PULSE 76
[2016-11-16 07:56] VITALS: BP 139/79; PULSE 73; RESP 16; TEMP 97.4; O2SAT 95
[2016-11-16] MEDS ORDERED: PANT20 PO (08:37)
[2016-11-16] MEDS ORDERED: CEPH500C PO (08:37)
[2016-11-16] MEDS ORDERED: VENTAER INH (08:38)
[2016-11-16] MEDS ORDERED: IBUP-232 PO (08:38)
--- NOTE | 2016-11-16 08:39 | HHI.DCPOC ---
Discharge Care Plan Diagnosis: (1) Fall (2) Rib fractures (3) Contusion of left front wall of thorax (4) Cellulitis of buttock (5) COPD (chronic obstructive pulmonary disease) (6) Osteoarthritis (7) Left shoulder pain (8) Vitamin D deficiency Goals to Promote Your Health * To prevent worsening of your condition and complications * To maintain your health at the optimal level Directions to Meet Your Goals Take your medications as prescribed Follow your dietary instruction Follow activity as directed Keep your appointments as scheduled Take your immunizations and boosters as scheduled If your symptoms worsen call your PCP, if no PCP go to Urgent Care Center or Emergency Room Smoking is Dangerous to Your Health. Avoid second hand smoke Call the 24-hour hour crisis hotline for domestic abuse at Carolynn Conte PA-C Nov 16, 2016 08:39
--- NOTE | 2016-11-16 08:58 | HHI.DS ---
Discharge Summary Admission Date Nov 12, 2016 at 15:46 pm Discharge Date: Nov 16, 2016 Admitting Diagnosis chest pain; leukocytosis (1) Contusion of left front wall of thorax ICD Code: S20.212A Diagnosis: Principal (2) Chest pain ICD Code: R07.9 Diagnosis: Principal (3) Fall ICD Code: W19.XXXA Diagnosis: Principal (4) Rib fractures ICD Code: S22.39XA Diagnosis: Principal (5) Left shoulder pain ICD Code: M25.512 Diagnosis: Secondary (6) Osteoarthritis ICD Code: M19.90 Diagnosis: Secondary (7) Cellulitis of buttock ICD Code: L03.317 Diagnosis: Secondary (8) COPD (chronic obstructive pulmonary disease) ICD Code: J44.9 Diagnosis: Secondary (9) Diarrhea ICD Code: R19.7 Diagnosis: Secondary Procedures None. Brief History - From Admission This is a 60 year old male patient with a past medical history which includes Cerebral Palsy, congenital deafness, HTN, COPD and depression. Patient is congenitally deaf communicates by reading lips and has impaired speak whihchi limits communication. Information obtained from patient as well as computerized charting. Patient reports he was sent to ER by a doctor on [facility] because of chest pain. Patient reports he has had chest pain for the past two months. Patient had a fall this past Friday at which time he sustained bilateral rib fractures R 9th and L 11th rib. Patient report this morning his chest pain was much worse. [facility] and was directed to a doctor. Patient reports the chest pain this AM was associated with shortness of breath, diaphoresis and stiffness of his bilateral arm. Patient describes chest pain as a stabbing sensation. Chest pain is worse with taking a deep breath or coughing. Initial EKG reveals SR rate 97 bpm with LAE and LVH Patient reports he vomiting once yesterday black in color. Patient also had diarrhea 5-6 times in the past week. Stool is also black in color. Patient denies fevers or chills. CBC/BMP: 11/15/16 1023 11/14/16 0443 Significant Findings Laboratory Tests Test 11/13/16 11/14/16 11/15/16 12:13 04:43 10:23 Troponin I LESS THAN 0.02 NG/ML (0.02-0.05) White Blood Count 18.9 TH/MM3 12.0 TH/MM3 (4.0-11.0) (4.0-11.0) Red Blood Count 3.54 MIL/MM3 3.51 MIL/MM3 (4.50-5.90) (4.50-5.90) Hemoglobin 11.4 GM/DL 11.5 GM/DL (13.0-17.0) (13.0-17.0) Hematocrit 33.9 % 33.5 % (39.0-51.0) (39.0-51.0) Platelet Count 469 TH/MM3 495 TH/MM3 (150-450) (150-450) Neutrophils (%) (Auto) 80.0 % 78.9 % (16.0-70.0) (16.0-70.0) Neutrophils # (Auto) 15.1 TH/MM3 9.5 TH/MM3 (1.8-7.7) (1.8-7.7) Monocytes # (Auto) 1.3 TH/MM3 (0-0.9) Eosinophils # (Auto) 0.5 TH/MM3 (0-0.4) Creatinine 0.48 MG/DL (0.60-1.30) Calcium Level 7.9 MG/DL (8.5-10.1) 25-Hydroxy Vitamin D Total 10.1 ng/ML (30-100) Imaging Last Impressions Shoulder X-Ray 11/15/16 0000 Signed Impressions: Service Date/Time: Tuesday, November 15, 2016 15:21 - CONCLUSION: Mild degenerative change in the acromioclavicular joint with no acute fracture or malalignment. Marcellus Cervantes MD Chest X-Ray 11/12/16 1610 Signed Impressions: Service Date/Time: Saturday, November 12, 2016 16:19 - CONCLUSION: No acute disease. Marcellus Cervantes MD Thoracic Spine X-Ray 11/12/16 0000 Signed Impressions: Service Date/Time: Saturday, November 12, 2016 16:28 - CONCLUSION: Negative trauma study. Marcellus Cervantes MD Chest CT 11/12/16 0000 Signed Impressions: Service Date/Time: Saturday, November 12, 2016 19:16 - CONCLUSION: 1. No acute thoracic process. 2. Paraseptal emphysema. 3. Scoliosis. Jermaine Zee MD Abdomen/Pelvis CT 11/12/16 0000 Signed Impressions: Service Date/Time: Saturday, November 12, 2016 19:16 - CONCLUSION: 1. Heterogeneity/hematoma left buttock musculature. 2. No acute fracture. 3. Scoliosis and degenerative changes. Jermaine Zee MD PE at Discharge GENERAL: Well-nourished, well-developed patient in NAD. Hearing impaired, reads lips. SKIN: Warm and dry. Left buttock with very small ecchymosis and surrounding erythema. HEENT: Normocephalic. Atraumatic.Pupils equal and round. Mucous membranes pink and moist. NECK: Supple. Trachea midline. CARDIOVASCULAR: Regular rate and rhythm. S1, S2 noted. Systolic murmur noted. Congenital chest wall deformity. RESPIRATORY: No accessory muscle use. Clear to auscultation. Breath sounds equal bilaterally. GASTROINTESTINAL: Abdomen soft, non-tender, nondistended. Normoactive bowel sounds x4. MUSCULOSKELETAL: No obvious deformities. Extremities without clubbing, cyanosis , or edema. NEUROLOGICAL: Awake and alert. No obvious cranial nerve deficits. Motor grossly within normal limits. PSYCHIATRIC: Appropriate mood and affect; insight and judgment normal. Pt update on day of discharge The patient reports feeling much better today. He had 2 formed bowel movements overnight. He states his left shoulder pain is much better. He is tolerating oral intake. He states his left buttocks infection is also much better, less painful, less erythematous. Denies fevers/chills. He is excited to go to rehab today. Hospital Course 61 year old male patient with a past medical history which includes Cerebral Palsy, congenital deafness, HTN, COPD and depression. Patient reports he was sent to ER by a doctor on pain management doctor on [facility] because of chest pain. Patient reports he has had chest pain for the past two months. Patient had a fall this past Friday at which time he fractured bilateral rib fractures R 9th and L 11th rib. Presented for worsening of chest wall discomfort. Chest wall pain- with recent fall and bilateral rib fractures on x-ray 11/07 ACS ruled out with negative serial troponins and EKG with nonspecific ST changes, no significant change from previous Echocardiogram with EF 45-55%, mod-severe MR CXR and CT chest images reviewed, no evidence of pneumothorax Cardiology consulted, seen by Dr. Watts, chest pain is noncardiac, cleared for discharge from cardiac standpoint. Continue pain control with [place] and IV morphine prn Pain improved prior to discharge Recurrent falls: Multiple ED visits for the same. Previous imaging has shown rib fractures as above, otherwise unremarkable including hip x-ray 11/09. Ambulates using a rolling walker. PT consulted, recommends SNF, although the patient is fairly ambulatory. B12 and TSH within normal limits Vit D low, started on cholecalciferol Consult case management for rehab placement, accepted to [facility] [place] prn, IV morphine for intractable pain Diarrhea 1 week ago Check stool studies if patient has any further episodes no further episodes, diarrhea resolved SIRS with Leukocytosis/Tachycardia- leukocytosis new since September. WBC worsening , suspected source Left Buttock Cellulitis. UA with no indication of UTI. CXR with no signs of infection. blood cultures with NGTD Consult ID, started on IV Ancef, recommended following blood culture until completion, no growth x4days monitored CBC, much improved, leukocytosis trended down from 24K --> 18.9K -- > 12.0K Left gluteal hematoma with cellulitis, possible early abscess Given IV Ancef per ID avoid anticoagulation ID Dr. Fournier recommended po Keflex q6h x7days and cleared for discharge COPD- chronic appears stable, continue Ventolin Nausea- Continue PPI with Zofran prn Acute on Chronic Left Shoulder Pain: with recent fall Left shoulder xray with mild degenerative change at the AC joint, no acute fracture pain control with norco prn Vitamin D Deficiency: started on cholecalciferol. DVT prophylaxis SCDs Discussed with Dr. Draper. Pt Condition on Discharge: Stable Discharge Disposition: Discharge to SNF Discharge Time: > 30 minutes Discharge Instructions DIET: Follow Instructions for: Heart Healthy Diet Follow up Referrals: PCP Follow-up - 1 Week New Medications: Cephalexin (Cephalexin) 500 Mg Cap 500 MG PO Q6H Infection #28 Ref 0 CAP Cholecalciferol (Vitamin D3) 5,000 Unit Cap 5000 UNITS PO DAILY vitamin D #30 CAP Pantoprazole (Protonix) 20 Mg Tab 20 MG PO DAILY Manage Heartburn #30 TAB Changed Medications: Ibuprofen (Ibuprofen) 600 Mg Tab 600 MG PO Q8HR PRN pain/inflammation #30 TAB (Changed from: Q6H; 40) Continued Medications: Albuterol 18 GM Inh (Ventolin Hfa 18 GM Inh) 90 Mcg/Act Aer 2 PUFF INH Q4-6H PRN SHORTNESS OF BREATH #1 Ref 1 INHALER (This prescription has been renewed) Carolynn Conte PA-C Nov 16, 2016 08:58
[2016-11-16] MEDS ORDERED: CHOLECALCIFEROL (VIT D3) 5000 UNIT CAP PO SCH (09:00)
[2016-11-16] MEDS: PANTOPRAZOLE SOD 20 MG DELAYED RELEASE TAB PO SCH (09:19)
[2016-11-16] MEDS: SODIUM CHLORIDE 0.9% FLUSH 10 ML FLUSH IV FLUSH SCH (09:19)
[2016-11-16] MEDS ORDERED: CHOL5000 PO (10:18)
[2016-11-16 12:13] VITALS: BP 152/90; PULSE 81; RESP 18; TEMP 97.8; O2SAT 98
== END 2016-11-16 13:56 | DRG 605 ==
LOC: NEPD 15:46 → NEDA 21:05 → NEPGCP 11-13 02:46 → OBSVTOIN 11-14 11:35
PROVIDERS: ADMIT Internal Medicine; ATTEND Internal Medicine
DX: S20.212A Contusion of left front wall of thorax, initial encounter (principal); E55.9 Vitamin D deficiency, unspecified; I10 Essential (primary) hypertension; L03.317 Cellulitis of buttock; H90.3 Sensorineural hearing loss, bilateral; S22.43XD Multiple fractures of ribs, bilateral, subsequent encounter for fracture with routine healing; R07.9 Chest pain, unspecified; M41.9 Scoliosis, unspecified; J44.9 Chronic obstructive pulmonary disease, unspecified; S30.0XXA Contusion of lower back and pelvis, initial encounter; G80.9 Cerebral palsy, unspecified; R00.0 Tachycardia, unspecified; R29.6 Repeated falls; F32.9 Major depressive disorder, single episode, unspecified; Z88.6 Allergy status to analgesic agent; Z88.2 Allergy status to sulfonamides; Z88.8 Allergy status to other drugs, medicaments and biological substances; W19.XXXD Unspecified fall, subsequent encounter; Z87.891 Personal history of nicotine dependence; R19.7 Diarrhea, unspecified; Z59.0 Homelessness; Q67.6 Pectus excavatum; I45.10 Unspecified right bundle-branch block; W18.30XA Fall on same level, unspecified, initial encounter; Z91.81 History of falling; Y93.9 Activity, unspecified; Y92.9 Unspecified place or not applicable; Y99.9 Unspecified external cause status; R11.2 Nausea with vomiting, unspecified; M25.552 Pain in left hip; M25.512 Pain in left shoulder; M19.90 Unspecified osteoarthritis, unspecified site
CPT/HCPCS: 71020; 71260; 72072; 73030; 74177; 80048; 80053; 81001; 82306; 82550; 82552; 82607; 82652; 83605; 83690; 83735; 84443; 84484; 85007; 85025; 85027; 85610; 85730; 87015; 87040; 93005; 93306; 94150; 96361; 96365; 96366; 96368; 96375; G0378; J0690; J0692; J1885; J2270; J2405; J3370; J7030; J7040; J7050; Q9967